=== PATIENT | female | born 1995 | race African-American/Black ===

== ENCOUNTER 2024-11-24 18:25 | Emergency (ER) | payer OTHER, SELFPAY ==
[2024-11-24 18:26] VITALS: BP 116/103; PULSE 68; RESP 15; TEMP 36.2; O2SAT 98; BMI 30.2
[2024-11-24 20:44] LABS: Absolute Lymphocyte Count 2.99 X10^3/uL (0.83-4.51); Absolute Neutrophil Count 3.2 X10^3/uL (2.0-7.7); Basophil# 0.04 X10^3/uL; Basophil% 0.6 % (0-1); Eosinophil# 0.08 X10^3/uL; Eosinophils% 1.2 % (0-5); Hematocrit 34.6 % (37-47); Hemoglobin 11.3 g/dL (12.0-15.0); Lymphocyte # 2.99 X10^3/ul (0.83-4.51); Lymphocyte % 44.3 % (19-41); Mean Corp Hgb Conc 32.7 g/dL (32-36); Mean Corpuscular Hgb 26.2 pg (27.0-32.0); Mean Corpuscular Volume 80.3 fL (81-99); Mean Platelet Vol. 12.1 fl (6.2-12.0); Monocyte# 0.44 X10^3/uL; Monocyte% 6.5 % (0-10); NRBC Flagged by Analyzer 0 % (0-5); Neutrophil # 3.18 X10^3/uL (2.7-7.7); Neutrophil % 47.1 % (47-70); POSITIVE MORPHOLOGY YES; Platelet Count 180 K/mm3 (150-450); RBC Distribution Width CV 15.4 % (11.6-14.6); RBC Distribution Width SD 44.8 fl (35.1-43.9); Red Blood Count 4.31 M/mm3 (4.2-5.4); White Blood Count 6.8 K/mm3 (4.4-11.0)
[2024-11-24 20:53] LABS: Internal QC Validated? YES +Cl - CLEAR BKGD; Pregnancy, Serum, hCG Quali. NEGATIVE Negative; Record Kit Lot#, Serum Preg. 947241
[2024-11-24 21:08] LABS: ALB/GLOB Ratio 1.3 RATIO (0.9-2.4); AST(SGOT) 28 U/L (<=31); Alanine Aminotransfer ALT/SGPT 24 U/L (<=34); Alkaline Phosphatase 93 U/L (35-104); Anion Gap 10 (5-15); BUN 8 mg/dL (4-19); BUN/Creat Ratio 10.7 RATIO (10-20); Carbon Dioxide 21.3 mmol/L (21.0-32.0); Chloride 109 mmol/L (98-108); Creatinine, Serum 0.75 mg/dL (0.70-1.20); EST Glomerular Filtration Rate 108 (>60); Estimated Creatinine Clearance 127.73 ml/min (50-250); Globulin 3.1 g/dL (2.2-4.2); Glucose 103 mg/dL (70-99); Lipase 28 U/L (13-75); Potassium 3.8 mmol/L (3.3-5.1); Protein, Total 7.1 g/dL (5.9-8.4); Sodium Level 140 mmol/L (133-145); Total Bilirubin 0.24 mg/dL (0.00-1.30)
[2024-11-24 21:34] LABS: Differential Indicated SCAN CRITERIA MET
[2024-11-24 21:35] LABS: Differential Comment SCANNED; Platelet Estimate ADEQUATE (ADEQ)
[2024-11-24 22:00] VITALS: BP 118/78; PULSE 67; RESP 18; O2SAT 97
--- NOTE | 2024-11-24 22:28 | CT_ITS ---
PROCEDURE: ABDOMEN/PELVIS W IV CONT ONLY 11/24/2024 REASON FOR EXAM: ABD PAIN TECHNIQUE: ABDOMEN/PELVIS W IV CONT ONLY Coronal and Sagittal reconstruction series were provided. CONTRAST: Isovue 300 VOLUME: 80 non mL One or more dose reduction techniques were used (e.g., Automated exposure control, adjustment of the mA and/or kV according to patient size, use of iterative reconstruction technique. RADIATION DOSE SUMMARY: CTDlvol: 32 mGy DLP: 1108 mGycm COMPARISON: No FINDINGS: Slight basilar atelectasis. Normal heart size. Upper abdominal solid organs show no acute findings. Small splenic hypodensity favoring benign etiology. No hydronephrosis. Normal bladder. Normal uterus and ovaries. No retroperitoneal or pelvic adenopathy. No free air. Nondistended bowel. Normal appendix. No acute large bowel findings. Lumbar spine scoliosis. Small umbilical fat hernia. CT/Abdomen/Pelvis W IV Cont ONLY IMPRESSION: No acute findings Reading Location: [place] [id number]
[2024-11-24] MEDS: 0.9% Normal Saline (1000mL) 1,000 ML 999 ML IV (22:57)
[2024-11-25] VITALS: BP 128/82; O2SAT 96
[2024-11-25 00:28] VITALS: BP 128/82
--- NOTE | 2024-11-25 00:44 | EX.ED.DYSGE1 ---
HPI History of Present Illness Chief Complaint: Abd Pain Informant: patient Narrative Narrative: Patient is a 32-year-old female who states that she has had recurrent abdominal pain as well as bouts of nausea vomiting and diarrhea for approximately 6 months. She states that she is been seen for this and had a stool study performed that reportedly showed no signs of infection. Patient denies any known sick contact. However she states that her symptoms seemed to worsen recently and secondary to this comes to the hospital for evaluation. PFSH PFSH Allergy/AdvReac Type Severity Reaction Status Date / Time No Known Allergies Allergy Verified 11/24/24 22:52 Social History Smoking Status: Never smoker ROS ROS ED Constitutional Constitutional ED: Denies chills or fever(s) ENT ENT ED: Denies sore throat Cardiovascular Cardiovascular: Denies chest pain Respiratory/Chest Respiratory/Chest: Denies cough or dyspnea Gastrointestinal Gastrointestinal: Reports abdominal pain, diarrhea, nausea and vomiting; Denies melena Genitourinary Genitourinary ED: Denies dysuria or hematuria Musculoskeletal Musculoskeletal: Denies back pain or myalgias Integumentary Denies rash Neurologic Neurologic: Denies headache(s) Hematologic/Lymphatic Hematologic/Lymphatic: Denies easy bleeding or easy bruising EXAM Physical Exam Const Vital Signs: 11/24/24 18:26 11/24/24 22:00 11/25/24 00:00 Temperature 97.2 F L Temperature Source Temporal Pulse Rate 68 67 Respiratory Rate 15 18 Blood Pressure 116/103 H 118/78 128/82 H Blood Pressure Mean 107 91 95 Pulse Ox 98 97 96 Oxygen Delivery Method Room Air Room Air 11/25/24 00:28 Temperature Temperature Source Pulse Rate Respiratory Rate Blood Pressure 128/82 H Blood Pressure Mean 97 Pulse Ox Oxygen Delivery Method Positive well nourished and well developed General Appearance ED: well developed; Negative for pallor HEENT Reports moist mucous membranes HEENT Narrative: No tongue or lip swelling no oral lesions no airway edema or compromise Eyes PERRL and EOMs intact bilaterally General Eye ED: Negative for scleral icterus Neck supple Resp normal respiratory effort and clear to auscultation bilaterally Cardio regular rate and regular rhythm Rate: other Other Details: Heart is regular rate and rhythm without murmurs rubs or gallops Radial and carotid pulses are equal and symmetric GI non-distended and no masses GI Narrative: Abdomen is soft and nondistended with normal active bowel sounds. There is mild diffuse pain with palpation without voluntary guarding or rigidity. No pulsatile mass or fluid wave. No peritoneal signs Auscultation: normoactive bowel sounds Palpation: soft Back/Spine no CVA tenderness Extremity normal to inspection Neuro oriented x3, CN's II-XII intact bilaterally and no sensory deficits noted Sensorium / Orientation: alert Motor Exam: strength 5/5 throughout Psych mental status grossly normal Skin no rashes or lesions noted, no wounds and skin turgor normal General Skin Exam: Negative for jaundice or pallor MDM MDM MDM Narrative Medical decision making narrative: Patient arrived to the ER with a soft nonsurgical abdomen. She reported that the symptoms have been recurrent for for multiple months and she is already being worked up for potential infectious process with stool study. However with her reported worsening symptoms patient may have acute colitis or diverticulitis. She also could have potential complication or pancreatitis. She states she has not had any imaging of her abdomen in the past therefore did elect to perform basic labs with a CT scan. I did also order a repeat stool study based on her reported persistent diarrhea. Her labs revealed no clinically significant findings and her CT scan also showed no signs of acute abdominal pathology. The patient did not have any bouts of vomiting or diarrhea while in the ER. Her vital stabilized as well. Therefore at this time with improvement of vitals a negative workup and the fact patient has not had any bouts of vomiting or diarrhea on the ER do not feel there is need for further evaluation and she is otherwise safe for discharge. History & Record Review Discussion w/independent historian: Patient Lab Data Attestation: I reviewed the patient's lab results. Labs: Laboratory Results - last 24 hr 11/24/24 20:32 WBC 6.8 RBC 4.31 Hgb 11.3 L Hct 34.6 L MCV 80.3 L MCH 26.2 L MCHC 32.7 RDW Std Deviation 44.8 H RDW Coeff of Bal 15.4 H Plt Count 180 MPV 12.1 H Immature Gran % (Auto) 0.300 Neut % (Auto) 47.1 Lymph % (Auto) 44.3 H [place] % (Auto) 6.5 Eos % (Auto) 1.2 Baso % (Auto) 0.6 Absolute Neuts (auto) 3.2 Absolute Lymphs (auto) 2.99 Nucleated RBC % 0 Differential Comment SCANNED Platelet Estimate ADEQUATE Sodium 140 Potassium 3.8 Chloride 109 H Carbon Dioxide 21.3 Anion Gap 10 BUN 8 Creatinine 0.75 Estim Creat Clear Calc 127.73 Est GFR (MDRD) Non-Af 108 BUN/Creatinine Ratio 10.7 Glucose 103 H Calcium 9.0 Total Bilirubin 0.24 AST 28 ALT 24 Alkaline Phosphatase 93 Total Protein 7.1 Albumin 4.0 Globulin 3.1 Albumin/Globulin Ratio 1.3 Lipase 28 Serum , Qual NEGATIVE Radiography Diagnostic Testing: Clinical Impression(s) from Imaging Studies Abdomen/Pelvis CT 11/24/24 22:28 IMPRESSION: No acute findings Reading Location: [place] [address] Discharge Plan Triage Chief Complaint: Abd Pain ED Provider: Harshal Healy Dx/Rx/DC Orders Clinical Impression: Nonspecific abdominal pain, Nausea vomiting and diarrhea Instructions: Abdominal Pain, ED Diet Vomiting Diarrhea Primary Care Provider: Care Physician,No Primary Referrals: García Ribeiro DO [Med Staff - Active Staff] - Care Physician,No Primary [Primary Care Provider] - Activity Restrictions/Additional Instructions: Your CT scan shows no sign of intestinal abnormality and your labs revealed no clinically significant findings. With your negative workup today but prolonged symptoms you need to follow-up with gastroenterology/Dr. Ribeiro as you may need an EGD and colonoscopy to further assess the cause of your recurrent symptoms Print Language: [place] Creole Disposition Disposition: Home, Self Care Discharge Date/Time: 11/25/24 00:57
[2024-11-25 00:51] VITALS: BP 111/73; PULSE 65; RESP 18; TEMP 37.1; O2SAT 98
== END 2024-11-25 00:57 | disposition home or self-care (01) ==
PROVIDERS: Emergency Provider Emergency Medicine; Visit Provider Emergency Medicine
DX: R10.9 Unspecified abdominal pain (principal); R11.2 Nausea with vomiting, unspecified; R19.7 Diarrhea, unspecified
CPT/HCPCS: 74177; 80053; 83690; 84703; 85025; 96360; 96361; 99283; Q9967; A4216

== ENCOUNTER 2025-02-06 14:36 | Emergency (ER) | payer SELFPAY ==
[2025-02-06 14:57] VITALS: BP 122/91; PULSE 63; RESP 20; TEMP 36.7; O2SAT 96; BMI 28.5
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
--- OUTSIDE RECORDS SUMMARY | 2025-02-06 15:06 | XMS RPT_ITS | CCD ---
Author Organization [facility] Care Team Providers Care Wire Annealer Name Role Phone Unavailable Primary Care Provider RENO Moser Attending Unavailable PROVIDER, UNKNOWN Primary Care Unavailable No Family, Physician Primary Care Unavailable ALEX PEARL Attending Unavailab le No Family, Physician Primary Care Unavailable LYUDMILA JIN Attending UnavailHO Paul Consulting Unavailable RENO GUILLEN Consulting Unavailable LYUDMILA JIN Referring Unavailabl e No Family, Physician Primary Care Unavailable PHYSICIAN, NONE Primary Care Unavailable NICOLE SAMANIEGO DO Attending Unavailable Care Physician, No Primary Primary Care Provider Unavailable Dr. Harshal Healy DO Emergency Provider Harshal Healy Attending Unavailable Care Physician, No Primary Primary Care Unava ilable Medications Current Medications Medication Drug Class(es) Dates Sig (Normalized) Sig (Original) acetaminophen 325 mg / HYDROcodone bitartrate 5 mg oral tablet (1 source) Opioid Agonist Start: 09-22-2023 End: 09-27-2023 HYDROcodone-acetam inophen (NORCO) 5-325 MG per tablet Indications: Anal pain , Rectal pain Take 1 tablet by mouth every 4 hours as needed for Pain for up to 5 days. Intended supply: 3 days. Take lowest dose possible to manage pain Max Daily Amount: 6 tablets 25 tablet 0 09/22/2023 09/27/2023 Active amoxicillin 875 mg / clavulanate 125 mg oral tablet (1 source) Penicillin-class Antibacterial Start: 09-22-2023 End: 09-29-2023 take 1 tablet by mouth twice daily amoxicillin-clavul anate (AUGMENTIN) 875-125 MG per tablet Take 1 tablet by mouth 2 times daily for 7 days 14 tablet 0 09/22/2023 09/29/2023 Active docusate sodium 100 mg oral capsule (1 source) Start: 09-22-2023 take 1 capsule by mouth once daily as needed for constipation docusate sodium (COLACE) 100 MG capsule Take 1 capsule by mouth daily as needed for Constipation 30 capsule 0 09/22/2023 Active 2 ml droperidol 2.5 mg/ml injection (1 source) Dopamine-2 Receptor Antagonist Start: 09-22-2023 End: 2023 droPERidol (INAPSINE) injection 0.625 mg 2 ml fentaNYL 0.05 mg/ml injection (2 sources) Opioid Agonist Start: 09-22-2023 End: 09-22-2023 fentaNYL (SUBLIMAZE) injection 50 mcg 1 ml HYDROmorphone hydrochloride 1 mg/ml cartridge (1 source) Opioid Agonist Start: 09-22-2023 HYDROmorphone (DILAUDID) injection 0.25 mg ibuprofen 800 mg oral tablet (1 source) Nonsteroidal Anti-inflammatory Drug Start: 08-16-2021 take 1 tablet by mouth every eight hours ibuprofen (ADVIL;MOTRIN) 800 MG tablet Take 1 tablet by mouth every 8 hours 120 tablet 3 08/16/2021 Active labetalol (NORMODYNE;TRANDATE ) injection 10 mg (1 source) Start: 09-22-2023 labetalol (NORMODYNE;TRANDAT E) injection 10 mg lidocaine hydrochloride 0.02 mg/mg topical gel (1 source) Antiarrhythmic, Amide Local Anesthetic Start: 09-22-2023 lidocaine (XYLOCAINE) 2 % jelly Apply topically as needed. 1 each 0 09/22/2023 Active magnesium hydroxide 80 mg/ml oral suspension (1 source) Start: 09-22-2023 take 30 mL by mouth once daily as needed for constipation magnesium hydroxide (MILK OF MAGNESIA) 400 MG/5ML suspension Take 30 mLs by mouth daily as needed for Constipation 1 each 1 09/22/2023 Active 1 ml meperidine hydrochloride 25 mg/ml cartridge (1 source) Opioid Agonist Start: 09-22-2023 meperidine (DEMEROL) injection 12.5 mg Misc. Devices (SITZ BATH) MISC (1 source) Start: 09-22-2023 End: 10-06-2023 Misc. Devices (SITZ BATH) MISC 1 each by Does not apply route in the morning and at bedtime for 14 days Sitz bath BID and after every bowel movement. 1 each 1 09/22/2023 10/06/2023 Active naloxone 0.4 mg in 10 mL sodium chloride syringe (1 source) Start: 09-22-2023 naloxone 0.4 mg in 10 mL sodium chloride syringe 2 ml ondansetron 2 mg/ml injection (1 source) Serotonin-3 Receptor Antagonist Start: 09-22-2023 End: 2023 ondansetron (ZOFRAN) injection 4 mg oxyCODONE hydrochloride 5 mg oral tablet (1 source) Opioid Agonist Start: 09-22-2023 End: 2023 oxyCODONE (ROXICODONE) immediate release tablet 5 mg 5 ml sodium chloride 9 mg/ml injection (4 sources) Start: 09-22-2023 sodium chloride flush 0.9 % injection 5-40 mL Start: 09-22-2023 sodium chlorid e flush 0.9 % injection 5-40 mL Start: 09-22-2023 End: 09-22-2023 0.9 % sodium chloride infusi on Completed/Discontinued Medications Medication Drug Class(es) Dates Sig (Normalized) Sig (Original) 1 ml ketorolac tromethamine 15 mg/ml cartridge (1 source) Nonsteroidal Anti-inflammatory Drug, Cyclooxygenase Inhibitor Start: 09-22-2023 End: 09-22-2023 ketorolac (TORADOL) injection 15 mg Problems Active Problems Problem Classification Problem Date Documented Da te Episodic/Chronic Abdominal pain (2 sources) Nonspecific abdominal pain; Translations: [Unspecified abdominal pain] Onset: 01-19-2025 11-25-2024 Episodic Anal and rectal conditions (6 sources) Anal pain; Translations: [Other specified diseases of anus and rectum] Onset: 09-22-2023 09-22-2023 Episodic Hemorrhoids (5 sources) Thrombosed external hemorrhoids; Translations: [Perianal venous thrombosis] Onset: 09-22-2023 09-22-2023 Episodic Other female genital disorders (2 sources) Abnormal uterine and vaginal bleeding, unspecified; Translations: [Abnormal uterine and vaginal bleeding, unspecified] Onset: 09-22-2023 Chronic Syncope (4 sources) Syncope and collapse; Translations: [Syncope and collapse] Onset: 09-22-2023 09-22-2023 Episodic Past or Other Problems Problem Classification Problem Date Documented Da te Episodic/Chronic Other complications of ; puerperium affecting management of mother (1 source) Delivery finding; Translations: [Complication of labor and delivery, unspecified] Onset: 08-13-2021 08-13-2021 Episodic Results Test Name Value Interpretation Reference Range Facility Emergency Department Summary on 11-25-2024 Emergency Department Summary [facility] Medical Records Department [address] [place] [address] Emergency Department Summary 11/25/24 MR#: [id number] Acct: [id number] Name: BLAINE RUIZ Rep #: [id number] : 1995 29 From: Harshal Healy DO PCP: Care Physician,No Primary Status:DEP ER Location: ED HPI History of Present Illness Chief Complaint: Abd Pain Informant: patient Narrative Narrative: Patient is a 32-year-old female who states that she has had recurrent abdominal pain as well as bouts of nausea vomiting and diarrhea for approximately 6 months. She states that she is been seen for this and had a stool study performed that reportedly showed no signs of infection. Patient denies any known sick contact. However she states that her symptoms seemed to worsen recently and secondary to this comes to the hospital for evaluation. PFSH PFSH Allergy/AdvReac Type Severity Reaction Status Date / Time No Known Allergies Allergy Verified 11/24/24 22:52 Social History Smoking Status: Never smoker [facility] ED Constitutional Constitutional ED: Denies chills or fever(s) ENT ENT ED: Denies sore throat Cardiovascular Cardiovascular: Denies chest pain Respiratory/Chest Respiratory/Chest: Denies cough or dyspnea Gastrointestinal Gastrointestinal: Reports abdominal pain, diarrhea, nausea and vomiting; Denies melena Genitourinary Genitourinary ED: Denies dysuria or hematuria Musculoskeletal Musculoskeletal: Denies back pain or myalgias Integumentary Denies rash Neurologic Neurologic: Denies headache(s) Hematologic/Lymphati c Hematologic/Lymphati c: Denies easy bleeding or easy bruising EXAM Physical Exam Const Vital Signs: 11/24/24 18:26 11/24/24 22:00 11/25/24 00:00 Temperature 97.2 F L Temperature Source Temporal Pulse Rate 68 67 Respiratory Rate 15 18 Blood Pressure 116/103 H 118/78 128/82 H Blood Pressure Mean 107 91 95 Pulse Ox 98 97 96 Oxygen Delivery Method Room Air Room Air 11/25/24 00:28 Temperature Temperature Source Pulse Rate Respiratory Rate Blood Pressure 128/82 H Blood Pressure Mean 97 Pulse Ox Oxygen Delivery Method Positive well nourished and well developed General Appearance ED: well developed; Negative for pallor HEENT Reports moist mucous membranes HEENT Narrative: No tongue or lip swelling no oral lesions no airway edema or compromise Eyes PERRL and EOMs intact bilaterally General Eye ED: Negative for scleral icterus Neck supple Resp normal respiratory effort and clear to auscultation bilaterally Cardio regular rate and regular rhythm Rate: other Other Details: Heart is regular rate and rhythm without murmurs rubs or gallops Radial and carotid pulses are equal and symmetric GI non-distended and no masses GI Narrative: Abdomen is soft and nondistended with normal active bowel sounds. There is mild diffuse pain with palpation without voluntary guarding or rigidity. No pulsatile mass or fluid wave. No peritoneal signs Auscultation: normoactive bowel sounds Palpation: soft Back/Spine no CVA tenderness Extremity normal to inspection Neuro oriented x3, CN's II-XII intact bilaterally and no sensory deficits noted Sensorium / Orientation: alert Motor Exam: strength 5/5 throughout Psych mental status grossly normal Skin no rashes or lesions noted, no wounds and skin turgor normal General Skin Exam: Negative for jaundice or pallor MDM MDM MDM Narrative Medical decision making narrative: Patient arrived to the ER with a soft nonsurgical abdomen. She reported that the symptoms have been recurrent for for multiple months and she is already being worked up for potential infectious process with stool study. However with her reported worsening symptoms patient may have acute colitis or diverticulitis. She also could have potential complication or pancreatitis. She states she has not had any imaging of her abdomen in the past therefore did elect to perform basic labs with a CT scan. I did also order a repeat stool study based on her reported persistent diarrhea. Her labs revealed no clinically significant findings and her CT scan also showed no signs of acute abdominal pathology. The patient did not have any bouts of vomiting or diarrhea while in the ER. Her vital stabilized as well. Therefore at this time with improvement of vitals a negative workup and the fact patient has not had any bouts of vomiting or diarrhea on the ER do not feel there is need for further evaluation and she is otherwise safe for discharge. History Record Review Discussion w/independent historian: Patient Lab Data Attestation: I reviewed the patient's lab results. Labs: Laboratory Results - last 24 hr 11/24/24 20:32 WBC 6.8 RBC 4.31 Hgb 11. (more content not included)... Normal [facility] Abdomen/Pelvis W IV Cont ONL Yon 11-24-2024 Abdomen/Pelvis W IV Cont ONLY [facility] Imaging Services [address] [place], [place] [address] Abdomen/Pelvis W IV Cont ONLY MR#: [id number] Acct: [id number] Name: BLAINE RUIZ Rep #: [id number] : 1995 F 29 From: Ravi Mckay MD PCP: Care Physician,No Primary Status: DEP ER Study: Abdomen/Pelvis W IV Cont ONLY Date of Exam: Exam# [id number] Ordering Dr: Harshal Healy DO PROCEDURE: ABDOMEN/PELVIS W IV CONT ONLY 11/24/2024 REASON FOR EXAM: ABD PAIN TECHNIQUE: ABDOMEN/PELVIS W IV CONT ONLY Coronal and Sagittal reconstruction series were provided. CONTRAST: Isovue 300 VOLUME: 80 non mL One or more dose reduction techniques were used (e.g., Automated exposure control, adjustment of the mA and/or kV according to patient size, use of iterative reconstruction technique. RADIATION DOSE SUMMARY: CTDlvol: 32 mGy DLP: 1108 mGycm COMPARISON: No FINDINGS: Slight basilar atelectasis. Normal heart size. Upper abdominal solid organs show no acute findings. Small splenic hypodensity favoring benign etiology. No hydronephrosis. Normal bladder. Normal uterus and ovaries. No retroperitoneal or pelvic adenopathy. No free air. Nondistended bowel. Normal appendix. No acute large bowel findings. Lumbar spine scoliosis. Small umbilical fat hernia. CT/Abdomen/Pelvis W IV Cont ONLY IMPRESSION: No acute findings Reading Location: [place] [address] CC: Harshal Healy DO; No Primary Care Physician Embedded Firmware Engineer: Signed Normal [facility] Absolute lymphocyte countOrd ered By: ED PROVIDER on 11-24-2024 Lymphocytes Auto (Unsp spec) [#/Vol] 2.99 10*3/uL 0.83-4.51 [facility] Absolute neutrophil countOrd ered By: ED PROVIDER on 11-24-2024 Neutrophils (Bld) [#/Vol] 3.2 10*3/uL 2.0-7.7 [facility] Anion gap in Serum or Plasma Ordered By: ED PROVIDER on 11-24-2024 Anion gap [Moles/Vol] 10 mmol/L 5- [facility] Automated lymphocyte count a s percentage of total leukocytesOrdered By: ED PROVIDER on 11-24-2024 Lymphocytes/100 WBC Auto (Unsp spec) 44.3 % High 19-41 [facility] BUN/creatinine ratioOrdered By: ED PROVIDER on 11-24-2024 Urea nitrogen/Creatinine [Mass ratio] 10.7 mg/mg 10-20 [facility] Basophil percentageOrdered B y: ED PROVIDER on 11-24-2024 Basophils/100 WBC (Bld) 0.6 % 0-1 [facility] Bilirubin, totalOrdered By: ED PROVIDER on 11-24-2024 Bilirubin [Mass/Vol] 0.24 mg/dL 0.00-1.30 [facility] Blood manual differential co mment interpretation (narrative result)Ordered By: ED PROVIDER on 11-24-2024 Manual differential comment Logan (Bld) [Interp] SCANNED [facility] CBC W/Diff, Automatedon 11-01 PLT EST ADEQUATE Normal ADEQ [facility] Comment on above: Performed By: #### L 500.4050, L100.0100, L501.2450, L700.6800 #### [facility] [address] [place], [address] SMEAR COMMENT SCANNED Normal [facility] Comment on above: Performed By: #### L 500.4050, L100.0100, L501.2450, L700.6800 #### [facility] [address] [place], [address] Carbon dioxide, total [Moles /volume] in Central venous bloodOrdered By: ED PROVIDER on 11-24-2024 CO2 [Moles/Vol] 21.3 mmol/L 21.0-32.0 [facility] Chloride assayOrdered By: ED PROVIDER on 11-24-2024 Chloride [Moles/Vol] 109 mmol/L High 98-108 [facility] Comprehensive Metabolic Prof ilon 11-24-2024 Albumin [Mass/Vol] 4.0 g/dL Normal 3.5-5.0 [facility] Comment on above: Performed By: #### L 500.4050, L100.0100, L501.2450, L700.6800 #### [facility] [address] [place], [address] Albumin/Globulin [Mass ratio] 1.3 {ratio} Normal 0.9-2.4 [facility] Comment on above: Performed By: #### L 500.4050, L100.0100, L501.2450, L700.6800 #### [facility] [address] [place], [address] ALK PHOS 93 U/L Normal 35-104 [facility] Comment on above: Performed By: #### L 500.4050, L100.0100, L501.2450, L700.6800 #### [facility] [address] [place], [address] ALT [Catalytic activity/Vol] 24 U/L Normal <=34 [facility] Comment on above: Performed By: #### L 500.4050, L100.0100, L501.2450, L700.6800 #### [facility] [address] [place], [address] AST [Catalytic activity/Vol] 28 U/L Normal <=31 [facility] Comment on above: Performed By: #### L 500.4050, L100.0100, L501.2450, L700.6800 #### [facility] [address] [place], [address] Bilirubin [Mass/Vol] 0.24 mg/dL Normal 0.00-1.30 [facility] Comment on above: Performed By: #### L 500.4050, L100.0100, L501.2450, L700.6800 #### [facility] [address] [place], [address] BUN/CRE 10.7 RATIO Normal 10-20 [facility] Comment on above: Performed By: #### L 500.4050, L100.0100, L501.2450, L700.6800 #### [facility] [address] [place], [address] Calcium [Mass/Vol] 9.0 mg/dL Normal 7.6-11.0 [facility] Comment on above: Performed By: #### L 500.4050, L100.0100, L501.2450, L700.6800 #### [facility] [address] [place], [address] Chloride [Moles/Vol] 109 mmol/L High 98-108 [facility] Comment on above: Performed By: #### L 500.4050, L100.0100, L501.2450, L700.6800 #### [facility] [address] [place], [address] CO2 [Moles/Vol] 21.3 mmol/L Normal 21.0-32.0 [facility] Comment on above: Performed By: #### L 500.4050, L100.0100, L501.2450, L700.6800 #### [facility] [address] [place], [address] Creatinine [Mass/Vol] 0.75 mg/dL Normal 0.70-1.20 [facility] Comment on above: Performed By: #### L 500.4050, L100.0100, L501.2450, L700.6800 #### [facility] [address] [place], [address] ECRCL 127.73 ml/min Normal 50-250 [facility] Comment on above: Performed By: #### L 500.4050, L100.0100, L501.2450, L700.6800 #### [facility] [address] [place], [address] GAP 10 Normal 5-15 [facility] Comment on above: Performed By: #### L 500.4050, L100.0100, L501.2450, L700.6800 #### [facility] [address] [place], [address] GFR/1.73 sq M.predicted among non-blacks MDRD (S/P/Bld) [Vol rate/Area] 108 mL/min/{1.73_m2} Normal >60 [facility] Comment on above: Result Comment: mL/m in/1.73m2 CKD-EPI Creatinine Equation (2020) Performed By: #### L 500.4050, L100.0100, L501.2450, L700.6800 #### [facility] [address] [place], [address] Globulin (S) [Mass/Vol] 3.1 g/dL Normal 2.2-4.2 [facility] Comment on above: Performed By: #### L 500.4050, L100.0100, L501.2450, L700.6800 #### [facility] [address] [place], [address] Glucose [Mass/Vol] 103 mg/dL High 70-99 [facility] Comment on above: Performed By: #### L 500.4050, L100.0100, L501.2450, L700.6800 #### [facility] [address] [place], [address] Potassium [Moles/Vol] 3.8 mmol/L Normal 3.3-5.1 [facility] Comment on above: Performed By: #### L 500.4050, L100.0100, L501.2450, L700.6800 #### [facility] [address] [place], [address] Sodium [Moles/Vol] 140 mmol/L Normal 133-145 [facility] Comment on above: Performed By: #### L 500.4050, L100.0100, L501.2450, L700.6800 #### [facility] [address] [place], [address] T PROT 7.1 g/dL Normal 5.9-8.4 [facility] Comment on above: Performed By: #### L 500.4050, L100.0100, L501.2450, L700.6800 #### [facility] [address] [place], [address] Urea nitrogen [Mass/Vol] 8 mg/dL Normal 4-19 [facility] Comment on above: Performed By: #### L 500.4050, L100.0100, L501.2450, L700.6800 #### [facility] [address] [place], [address] Eosinophil percentageOrdered By: ED PROVIDER on 11-24-2024 Eosinophils/100 WBC (Bld) 1.2 % 0-5 [facility] Erythrocyte distribution wid th ratioOrdered By: ED PROVIDER on 11-24-2024 Erythrocyte distribution width (RBC) [Ratio] 15.4 % High 11.6-14.6 [facility] Erythrocyte distribution wid th standard deviationOrdered By: ED PROVIDER on 11-24-2024 Erythrocyte distribution width (RBC) [Ratio] 44.8 fl High 35.1-43.9 [facility] Glomerular filtration rate ( GFR) estimation/1.73 sq m using serum, plasma, or whole bOrdered By: ED PROVIDER on 11-24-2024 GFR/1.73 sq M.predicted among non-blacks MDRD (S/P/Bld) [Vol rate/Area] 108 mL/min/{1.73_m2} >60 [facility] Comment on above: mL/min/1.73m2 CKD-EP I Creatinine Equation (2020) Hematocrit Auto (Bld) [Volum e fraction]Ordered By: ED PROVIDER on 11-24-2024 Hematocrit (Bld) [Volume fraction] 34.6 % Low 37-47 [facility] Hemoglobin measurementOrdere d By: ED PROVIDER on 11-24-2024 Hemoglobin (Bld) [Mass/Vol] 11.3 g/dL Low 12.0-15.0 [facility] Immature granulocytes/100 WB C Auto (Bld)Ordered By: ED PROVIDER on 11-24-2024 Immature granulocytes/100 WBC (Bld) 0.300 % 0.0-0.9 [facility] Comment on above: IG% - Immature Granu locytes (promyelocytes, myelocytes and metamyelocytes) > 1% indicates that a LEFT SHIFT is Present. Laboratory - Chemistry and C hemistry - challengeOrdered By: ED PROVIDER on 11-24-2024 AST [Catalytic activity/Vol] 28 U/L <32 [facility] Lipaseon 11-24-2024 Lipase [Catalytic activity/Vol] 28 U/L Normal 13-75 [facility] Comment on above: Result Comment: Jayro win note: LIPASE revised reference range effective 22. New Lipase methodology. Expected to produce lower values than the previous assay method. NEW Reference Range: 13 - 75 U/L Performed By: #### L 500.4050, L100.0100, L501.2450, L700.6800 #### [facility] [address] [place], [address] Lipase measurementOrdered By : ED PROVIDER on 11-24-2024 Lipase [Catalytic activity/Vol] 28 U/L 13-75 [facility] Comment on above: Please note:LIPASE r evised reference range effective 22. New Lipase methodology. Expected to produce lower values than the previous assay method. NEW Reference Range: 13 - 75 U/L MCV (mean corpuscular volume ) determinationOrdered By: ED PROVIDER on 11-24-2024 MCV (RBC) [Entitic vol] 80.3 fL Low 81-99 [facility] Mean corpuscular hemoglobin (MCH) determinationOrdered By: ED PROVIDER on 11-24-2024 MCH (RBC) [Entitic mass] 26.2 pg Low 27.0-32.0 [facility] Mean corpuscular hemoglobin concentration (MCHC) determinationOrdered By: ED PROVIDER on 11-24-2024 MCHC (RBC) [Mass/Vol] 32.7 g/dL 32-36 [facility] Mean platelet volume determi nationOrdered By: ED PROVIDER on 11-24-2024 Platelet mean volume (Bld) [Entitic vol] 12.1 fL High 6.2-12.0 [facility] Monocyte percentageOrdered B y: ED PROVIDER on 11-24-2024 Monocytes/100 WBC (Bld) 6.5 % 0-10 [facility] Neutrophil percentageOrdered By: ED PROVIDER on 11-24-2024 Neutrophils/100 WBC (Bld) 47.1 % 47-70 [facility] Nucleated red blood cell per centageOrdered By: ED PROVIDER on 11-24-2024 Nucleated RBC/100 WBC (Bld) [Ratio] 0 % 0-5 [facility] Platelet countOrdered By: ED PROVIDER on 11-24-2024 Platelets (Bld) [#/Vol] 180 10*3/uL 150-450 [facility] Platelet estimateOrdered By: ED PROVIDER on 11-24-2024 Platelets LM Ql (Bld) ADEQUATE ADEQ [facility] Potassium measurement (mass/ volume)Ordered By: ED PROVIDER on 11-24-2024 Potassium (Unsp spec) [Mass/Vol] 3.8 mmol/L 3.3-5.1 [facility] ,Serum,hCG Quali.on 11-24-2024 HCG, SERUM QUAL Negative Normal [facility] Comment on above: Performed By: #### L 500.4050, L100.0100, L501.2450, L700.6800 #### [facility] [address] [place], [address] RBC Auto (Bld) [#/Vol]Ordere d By: ED PROVIDER on 11-24-2024 RBC (Bld) [#/Vol] 4.31 10*6/uL 4.2-5.4 [facility] Serum beta-hCG test, qualita tiveOrdered By: ED PROVIDER on 11-24-2024 Beta HCG ( test) Ql Negative [facility] Serum creatinine measurement (mass/volume)Ordered By: ED PROVIDER on 11-24-2024 Creatinine [Mass/Vol] 0.75 mg/dL 0.70-1.20 [facility] Serum globulin measurementOr dered By: ED PROVIDER on 11-24-2024 Globulin (S) [Mass/Vol] 3.1 g/dL 2.2-4.2 [facility] Serum glucose measurement (m ass/volume)Ordered By: ED PROVIDER on 11-24-2024 Glucose [Mass/Vol] 103 mg/dL High 70-99 [facility] Serum or plasma alanine ocampo otransferase (ALT) measurementOrdered By: ED PROVIDER on 11-24-2024 ALT [Catalytic activity/Vol] 24 U/L <35 [facility] Serum or plasma albumin atul urement (mass/volume)Ordered By: ED PROVIDER on 11-24-2024 Albumin [Mass/Vol] 4.0 g/dL 3.5-5.0 [facility] Serum or plasma albumin/glob ulin mass ratioOrdered By: ED PROVIDER on 11-24-2024 Albumin/Globulin [Mass ratio] 1.3 {ratio} 0.9-2.4 [facility] Serum or plasma alkaline shira sphatase measurementOrdered By: ED PROVIDER on 11-24-2024 ALP [Catalytic activity/Vol] 93 U/L 35-104 [facility] Serum or plasma calcium atul urement (mass/volume)Ordered By: ED PROVIDER on 11-24-2024 Calcium [Mass/Vol] 9.0 mg/dL 7.6-11.0 [facility] Serum or plasma urea nitroge n measurement (mass/volume)Ordered By: ED PROVIDER on 11-24-2024 Urea nitrogen [Mass/Vol] 8 mg/dL 4-19 [facility] Sodium levelOrdered By: ED P ROVIDER on 11-24-2024 Sodium [Moles/Vol] 140 mmol/L 133-145 [facility] Total proteinOrdered By: ED PROVIDER on 11-24-2024 Protein [Mass/Vol] 7.1 g/dL 5.9-8.4 [facility] White blood cell (WBC) count Ordered By: ED PROVIDER on 11-24-2024 WBC (Bld) [#/Vol] 6.8 10*3/uL 4.4-11.0 [facility] BVPCRon 08-11-2024 Bacterial Vaginosis Positive Abnormal Negative [facility] Comment on above: Result Comment: Mole luis enriquear methodology performed on the ReviewPro System. Performed By: #### B VPCR, NGPCR1, CVTV, CTPCR #### [place] [address] CTPCRon 08-11-2024 C. trachomatis Interp Normal See CT Interp N [facility] Comment on above: Result Comment: C. t rachomatis DNA not detected. Specimen is presumptive negative for C. trachomatis. A negative result does not preclude C. trachomatis infection because results depend on adequate specimen collection, absence of inhibitors, and sufficient DNA to be detected. See CT Interp N Performed By: #### B VPCR, NGPCR1, CVTV, CTPCR #### [place] [address] C.trachomatis PCR Negative Normal Negative [facility] Comment on above: Result Comment: Arias zhou (PCR) assay performed on the appssavvyas 4800 system. Performed By: #### B VPCR, NGPCR1, CVTV, CTPCR #### [place] [id number] Chlam Source Cervix Normal [facility] Comment on above: Result Comment: Garg sport tube received with two swabs. Review collection procedure. Inappropriate collection may cause aberrant results. Performed By: #### B VPCR, NGPCR1, CVTV, CTPCR #### [place] [address] CVTVon 08-11-2024 Valerie glabrata Negative Normal Negative [facility] Comment on above: Performed By: #### B VPCR, NGPCR1, CVTV, CTPCR #### [place] [address] Valerie Species Positive Abnormal Negative [facility] Comment on above: Result Comment: Arias zhou methodology performed on the ReviewPro System. Performed By: #### B VPCR, NGPCR1, CVTV, CTPCR #### [place] [address] Trichomonas vaginalis Negative Normal Negative [facility] Comment on above: Performed By: #### B VPCR, NGPCR1, CVTV, CTPCR #### [place] [address] [id number] 08-11-2024 GC PCR Source Cervix Normal [facility] Comment on above: Result Comment: Garg sport tube received with two swabs. Review collection procedure. Inappropriate collection may cause aberrant results. Performed By: #### B VPCR, NGPCR1, CVTV, CTPCR #### [place] [address] N. gonorrhoeae (PCR) Negative Normal Negative [facility] Comment on above: Result Comment: Arias zhou (PCR) assay performed on the Gio Jmaes 4800 System. Performed By: #### B VPCR, NGPCR1, CVTV, CTPCR #### [place] [address] N. gonorrhoeae Interp Normal See NG Interp N [facility] Comment on above: Result Comment: N. g onorrhoeae DNA not detected. Specimen is presumptive negative for N. gonorrhoeae. A negative result does not preclude Neisseria gonorrhoeae infection because results depend on adequate specimen collection, absence of inhibitors, and sufficient DNA to be detected. See NG Interp N Performed By: #### B VPCR, NGPCR1, CVTV, CTPCR #### [place] [address] .Urinalysis Microscopic (AO) on 08-09-2024 UA RBC 0-5 Abnormal None Seen [facility] Comment on above: Performed By: #### U AMICAO, UA, PREGU #### [address] [address] UA Squam Epithelial 15-25 Abnormal None Seen [facility] Comment on above: Performed By: #### U AMICAO, UA, PREGU #### [address] [address] UA WBC 0-5 Abnormal None Seen [facility] Comment on above: Performed By: #### U AMICAO, UA, PREGU #### [address] [address] PREGUon 08-09-2024 HCG ( test) Ql (U) Negative Normal [facility] Comment on above: Performed By: #### U AMICAO, UA, PREGU #### [address] [address] test (u) int Not detected Invalid Interpretation Code [facility] Comment on above: Performed By: #### U AMICAO, UA, PREGU #### [address] [address] UAon 08-09-2024 Color (U) Yellow Normal [facility] Comment on above: Performed By: #### U AMICAO, UA, PREGU #### [address] [address] Glucose (U) [Mass/Vol] Negative Normal Negative [facility] Comment on above: Performed By: #### U AMICAO, UA, PREGU #### [address] [address] Ketones Ql (U) Negative Normal Negative [facility] Comment on above: Performed By: #### U AMICAO, UA, PREGU #### [address] [address] UA Appear Slightly Cloudy Abnormal Clear [facility] Comment on above: Performed By: #### U AMICAO, UA, PREGU #### [address] [address] UA Blood Negative Normal Negative [facility] Comment on above: Performed By: #### U AMICAO, UA, PREGU #### [place] [address] UA Leuk Est Negative Normal Negative [facility] Comment on above: Performed By: #### U AMICAO, UA, PREGU #### [place] [address] UA Nitrite Negative Normal Negative [facility] Comment on above: Performed By: #### U AMICAO, UA, PREGU #### [place] [address] UA pH 5.5 Normal 5.0 - 8.[address] [facility] Comment on above: Performed By: #### U AMICAO, UA, PREGU #### [place] [address] UA Protein Negative Normal Negative [facility] Comment on above: Performed By: #### U AMICAO, UA, PREGU #### [place] [address] UA Spec Grav >=1.030 Abnormal 1.015-1.[address] [facility] Comment on above: Performed By: #### U AMICAO, UA, PREGU #### [place] [address] UA Specimen Type Clean Catch Normal [facility] Comment on above: Performed By: #### U AMICAO, UA, PREGU #### [place] [address] UA Urobilinogen 0.2 E.U./dL Normal 0.2-1.[address] [facility] Comment on above: Performed By: #### U AMICAO, UA, PREGU #### [place] [address] Urobilinogen (U) [Mass/Vol] Negative Normal Negative [facility] Comment on above: Performed By: #### U AMICAO, UA, PREGU #### [facility] [place] [address], [place] [address] BASIC METABOL PANELon 2023 Anion gap [Moles/Vol] 11 mmol/L Normal 7-16 [facility] Comment on above: Performed By: #### C D, EBCG, HCGQL, TROTHS, PBNP #### ([place]) [facility] ([id number]) [address] [place] [address] DR RODGERS, Calcium [Mass/Vol] 8.7 mg/dL Normal 8.3-10.6 [facility] Comment on above: Performed By: #### C D, EBCG, HCGQL, TROTHS, PBNP #### ([place]) [facility] ([id number] [place] [address] DR RODGERS, Chloride [Moles/Vol] 109 mmol/L Normal 99-110 [facility] Comment on above: Performed By: #### C D, EBCG, HCGQL, TROTHS, PBNP #### ([place]) [facility] ([id number]) [address] [place] [address] DR RODGERS, CO2 [Moles/Vol] 21 mmol/L Normal 21-32 [facility] Comment on above: Performed By: #### C D, EBCG, HCGQL, TROTHS, PBNP #### ([place]) [facility] ([id number]) [address] [place] [address] DR RODGERS, Creatinine [Mass/Vol] 0.7 mg/dL Normal 0.6-1.1 [facility] Comment on above: Performed By: #### C D, EBCG, HCGQL, TROTHS, PBNP #### ([place]) [facility] ([id number] [address] DR RODGERS, GFR/1.73 sq M.predicted among non-blacks MDRD (S/P/Bld) [Vol rate/Area] mL/min/{1.73_m2} Normal >60 [facility] Comment on above: Result Comment: These results are not intended for use in patients <18 years of age. eGFR results are calculated without a race factor using the 2020 CKD-EPI equation. Careful clinical correlation is recommended, particularly when comparing to results calculated using previous equations. The CKD-EPI equation is less accurate in patients with extremes of muscle mass, extra-renal metabolism of creatine, excessive creatine ingestion, or following therapy that affects renal tubular secretion. Performed By: #### C D, EBCG, HCGQL, TROTHS, PBNP #### ([place]) [facility] ([id number]) [address] [place] [address] DR RODGERS, Glucose [Mass/Vol] 110 mg/dL High 70-99 [facility] Comment on above: Performed By: #### C William, EBCG, HCGQL, TROTHS, PBNP #### ([place]) [facility] ([id number]) [address] [place] [address] DR RODGERS, Potassium [Moles/Vol] 3.4 mmol/L Low 3.5-5.1 [facility] Comment on above: Performed By: #### C William, EBCG, HCGQL, TROTHS, PBNP #### ([place]) [facility] ([id number]) [address] [place] [address] DR RODGERS, Sodium [Moles/Vol] 141 mmol/L Normal 135-145 [facility] Comment on above: Performed By: #### C D, EBCG, HCGQL, TROTHS, PBNP #### ([place]) [facility] ([id number]) [address] [place] [address] DR RODGERS, Urea nitrogen [Mass/Vol] 8 mg/dL Normal 6-23 [facility] Comment on above: Performed By: #### C D, EBCG, HCGQL, TROTHS, PBNP #### ([place]) [facility] ([id number]) [address] [place] [address] DR RODGERS, BMPon 09-22-2023 Anion gap [Moles/Vol] 11 mmol/L 7 - 16 [facility] Calcium [Mass/Vol] 8.7 mg/dL [facility] Chloride [Moles/Vol] 109 mmol/L [facility] CO2 [Moles/Vol] 21 mmol/L [facility] Creatinine [Mass/Vol] 0.7 mg/dL [facility] GFR/1.73 sq M.predicted MDRD (S/P/Bld) [Vol rate/Area] - PINF [facility] Comment on above: These results are not intended for use in patients <18 years of age. eGFR results are calculated without a race factor using the 2020 CKD-EPI equation. Careful clinical correlation is recommended, particularly when comparing to results calculated using previous equations. The CKD-EPI equation is less accurate in patients with extremes of muscle mass, extra-renal metabolism of creatine, excessive creatine ingestion, or following therapy that affects renal tubular secretion. Glucose [Mass/Vol] 110 mg/dL High [facility] Interpretation and review of laboratory results Abnormal [facility] Potassium [Moles/Vol] 3.4 mmol/L Low [facility] Sodium [Moles/Vol] 141 mmol/L [facility] Urea nitrogen [Mass/Vol] 8 mg/dL [facility] Brain Natriuretic Peptideon 09-22-2023 Pro-BNP PG/ML NINF - 300 PG/ML [facility] Comment on above: WE HAVE CONVERTED FROM BNP TO NT-proBNP Our reference range to RULE OUT acute CHF is <300pg/ml. To RULE IN acute CHF please use the following reference ranges derived from the PRIDE study. <50yrs >450pg/ml 50-75yrs >900pg/ml >75yrs >1800pg/ml CBC AND DIFFERENTIALon 09-21 Basophils/100 WBC (Bld) 0.5 % Normal 0-1 [facility] Comment on above: Performed By: #### C D, EBCG, HCGQL, TROTHS, PBNP #### ([place]) [facility] ([id number]) [address] [place] [address] DR RODGERS, DIFF METHOD AUTOMATED DIFFERENTIAL Normal [facility] Comment on above: Performed By: #### C D, EBCG, HCGQL, TROTHS, PBNP #### ([place]) [facility] ([id number]) [address] [place] [address] DR RODGERS, Eosinophils/100 WBC (Bld) 0.2 % Normal 0-3 [facility] Comment on above: Performed By: #### C D, EBCG, HCGQL, TROTHS, PBNP #### ([place]) [facility] ([id number] [address] DR RODGERS, Erythrocyte distribution width (RBC) [Ratio] 13.6 % Normal 11.7-14.9 [facility] Comment on above: Performed By: #### C D, EBCG, HCGQL, TROTHS, PBNP #### ([place]) [facility] ([id number]) [address] [place] [address] DR RODGERS, Hematocrit (Bld) [Volume fraction] 40.1 % Normal 37-47 [facility] Comment on above: Performed By: #### C D, EBCG, HCGQL, TROTHS, PBNP #### ([place]) [facility] ([id number] [place] [address] DR RODGERS, Hemoglobin (Bld) [Mass/Vol] 12.5 g/dL Normal 12.5-16.0 [facility] Comment on above: Performed By: #### Cristofer Thomas, EBCG, HCGQL, TROTHS, PBNP #### ([place]) [facility] ([id number] [place] [address] DR RODGERS, Lymphocytes/100 WBC (Bld) 14.2 % Low 24-44 [facility] Comment on above: Performed By: #### C D, EBCG, HCGQL, TROTHS, PBNP #### ([place]) [facility] ([id number]) [address] [place] [address] DR RODGERS, MCH (RBC) [Entitic mass] 27.5 pg Normal 27-31 [facility] Comment on above: Performed By: #### C D, EBCG, HCGQL, TROTHS, PBNP #### ([place]) [facility] ([id number]) [address] [place] [address] DR RODGERS, MCHC 31.2 % Low 32.0-36.0 [facility] Comment on above: Performed By: #### C D, EBCG, HCGQL, TROTHS, PBNP #### ([place]) [facility] ([id number]) [address] [place] [address] DR RODGERS, MCV (RBC) [Entitic vol] 88.1 fL Normal 78-100 [facility] Comment on above: Performed By: #### C D, EBCG, HCGQL, TROTHS, PBNP #### ([place]) [facility] ([id number]) [address] [place] [address] DR RODGERS, Monocytes/100 WBC (Bld) 5.3 % High 0-4 [facility] Comment on above: Performed By: #### C D, EBCG, HCGQL, TROTHS, PBNP #### ([place]) [facility] ([id number] [place] [address] DR RODGERS, Neutrophils/100 WBC (Bld) 0.4 % Normal 0-0.43 [facility] Comment on above: Performed By: #### C D, EBCG, HCGQL, TROTHS, PBNP #### ([place]) [facility] ([id number] [place] [address] DR RODGERS, Nucleated RBC/100 WBC (Bld) [Ratio] 0.0 % Normal [facility] Comment on above: Performed By: #### C D, EBCG, HCGQL, TROTHS, PBNP #### ([place]) [facility] ([id number] [place] [address] DR RODGERS, PLATELET COUNT 149 K/CU MM Normal 140-440 [facility] Comment on above: Performed By: #### C D, EBCG, HCGQL, TROTHS, PBNP #### ([place]) [facility] ([id number] [place] [address] DR RODGERS, Platelet mean volume (Bld) [Entitic vol] 12.7 fL High 7.5-11.1 [facility] Comment on above: Performed By: #### C D, EBCG, HCGQL, TROTHS, PBNP #### ([place]) [facility] ([id number]) [address] [place] [address] DR RODGERS, RED CELL COUNT 4.55 M/CU MM Normal 4.2-5.4 [facility] Comment on above: Performed By: #### C D, EBCG, HCGQL, TROTHS, PBNP #### ([place]) [facility] ([id number]) [address] [place] [address] DR RODGERS, Segmented neutrophils/100 WBC (Bld) 79.4 % High 36-66 [facility] Comment on above: Performed By: #### C D, EBCG, HCGQL, TROTHS, PBNP #### ([place]) [facility] ([id number]) [address] [place] [address] DR RODGERS, TOTAL BASOPHIL 0.1 K/CU MM Normal [facility] Comment on above: Performed By: #### C D, EBCG, HCGQL, TROTHS, PBNP #### ([place]) [facility] ([id number]) [address] [place] [address] DR RODGERS, TOTAL EOSINOPHIL 0.0 K/CU MM Normal [facility] Comment on above: Performed By: #### C D, EBCG, HCGQL, TROTHS, PBNP #### ([place]) [facility] ([id number]) [address] [place] [address] DR RODGERS, TOTAL IMMATURE NEUTROPHIL 0.04 K/CU MM Normal [facility] Comment on above: Performed By: #### C D, EBCG, HCGQL, TROTHS, PBNP #### ([place]) [facility] ([id number]) [address] [place] [address] DR RODGERS, TOTAL LYMPHOCYTE 1.4 K/CU MM Normal [facility] Comment on above: Performed By: #### C D, EBCG, HCGQL, TROTHS, PBNP #### ([place]) [facility] ([id number]) [address] [place] [address] DR RODGERS, TOTAL MONOCYTE 0.5 K/CU MM Normal [facility] Comment on above: Performed By: #### C D, EBCG, HCGQL, TROTHS, PBNP #### ([place]) [facility] ([id number]) [address] [place] [address] DR RODGERS, TOTAL NUCLEATED RBC 0.0 K/CU MM Normal [facility] Comment on above: Performed By: #### C D, EBCG, HCGQL, TROTHS, PBNP #### ([place]) [facility] ([id number]) [address] [place] [address] DR RODGERS, TOTAL SEGMENTED 7.8 K/CU MM Normal [facility] Comment on above: Performed By: #### C D, EBCG, HCGQL, TROTHS, PBNP #### ([place]) [facility] ([id number]) [address] [place] [address] DR RODGERS, WHITE CELL COUNT 9.8 K/CU MM Normal 4.0-10.5 [facility] Comment on above: Performed By: #### C D, EBCG, HCGQL, TROTHS, PBNP #### ([place]) [facility] ([id number]) [address] [place] [address] DR RODGERS, Basophils/100 WBC (Bld) 0.5 % Normal 0-1 [facility] Comment on above: Performed By: #### C D, CMPR, LIPA #### ([place]) [facility] ([id number]) [address] [place] [address] DR RODGERS, DIFF METHOD AUTOMATED DIFFERENTIAL Normal [facility] Comment on above: Performed By: #### C D, CMPR, LIPA #### ([place]) [facility] ([id number]) [address] [place] [address] DR RODGERS, Eosinophils/100 WBC (Bld) 0.7 % Normal 0-3 [facility] Comment on above: Performed By: #### C D, CMPR, LIPA #### ([place]) [facility] ([id number]) [address] [place] [address] DR RODGERS, Erythrocyte distribution width (RBC) [Ratio] 13.4 % Normal 11.7-14.9 [facility] Comment on above: Performed By: #### C D, CMPR, LIPA #### ([place]) [facility] ([id number] [place] [address] DR RODGERS, Hematocrit (Bld) [Volume fraction] 41.1 % Normal 37-47 [facility] Comment on above: Performed By: #### C D, CMPR, LIPA #### ([place]) [facility] ([id number] [place] [address] DR RODGERS, Hemoglobin (Bld) [Mass/Vol] 13.0 g/dL Normal 12.5-16.0 [facility] Comment on above: Performed By: #### C D, CMPR, LIPA #### ([place]) [facility] ([id number] [place] [address] DR RODGERS, Lymphocytes/100 WBC (Bld) 24.0 % Normal 24-44 [facility] Comment on above: Performed By: #### C D, CMPR, LIPA #### ([place]) [facility] ([id number] [place] [address] DR RODGERS, MCH (RBC) [Entitic mass] 27.5 pg Normal 27-31 [facility] Comment on above: Performed By: #### C D, CMPR, LIPA #### ([place]) [facility] ([id number] [place] [address] DR RDOGERS, MCHC 31.6 % Low 32.0-36.0 [facility] Comment on above: Performed By: #### C D, CMPR, LIPA #### ([place]) [facility] ([id number] [place] [address] DR RODGERS, MCV (RBC) [Entitic vol] 87.1 fL Normal 78-100 [facility] Comment on above: Performed By: #### C D, CMPR, LIPA #### ([place]) [facility] ([id number] [place] [address] DR RODGERS, Monocytes/100 WBC (Bld) 6.8 % High 0-4 [facility] Comment on above: Performed By: #### C D, CMPR, LIPA #### ([place]) [facility] ([id number] [place] [address] DR RODGERS, Neutrophils/100 WBC (Bld) 0.3 % Normal 0-0.43 [facility] Comment on above: Performed By: #### C D, CMPR, LIPA #### ([place]) [facility] ([id number] [place] [address] DR RODGERS, Nucleated RBC/100 WBC (Bld) [Ratio] 0.0 % Normal [facility] Comment on above: Performed By: #### C D, CMPR, LIPA #### ([place]) [id number] [place] [address] DR RODGERS, PLATELET COUNT 156 K/CU MM Normal 140-440 [facility] Comment on above: Performed By: #### C D, CMPR, LIPA #### ([place]) [facility] ([id number] [place] [address] DR RODGERS, Platelet mean volume (Bld) [Entitic vol] 12.0 fL High 7.5-11.1 [facility] Comment on above: Performed By: #### C D, CMPR, LIPA #### ([place]) [facility] ([id number] [place] [address] DR RODGERS, RED CELL COUNT 4.72 M/CU MM Normal 4.2-5.4 [facility] Comment on above: Performed By: #### C D, CMPR, LIPA #### ([place]) [facility] ([id number] [place] [address] DR RODGERS, Segmented neutrophils/100 WBC (Bld) 67.7 % High 36-66 [facility] Comment on above: Performed By: #### C D, CMPR, LIPA #### ([place]) [facility] ([id number] [place] [address] DR RODGERS, TOTAL BASOPHIL 0.0 K/CU MM Normal [facility] Comment on above: Performed By: #### C D, CMPR, LIPA #### ([place]) [address] [place] [address] DR RODGERS, TOTAL EOSINOPHIL 0.1 K/CU MM Normal [facility] Comment on above: Performed By: #### C D, CMPR, LIPA #### ([place]) [address] [place] [address] DR RODGERS, TOTAL IMMATURE NEUTROPHIL 0.03 K/CU MM Normal [facility] Comment on above: Performed By: #### C D, CMPR, LIPA #### ([place]) [address] RODGERS, TOTAL LYMPHOCYTE 2.1 K/CU MM Normal [facility] Comment on above: Performed By: #### C D, CMPR, LIPA #### ([place]) [address] [place] [address] DR RODGERS, TOTAL MONOCYTE 0.6 K/CU MM Normal [facility] Comment on above: Performed By: #### C D, CMPR, LIPA #### ([place]) [address] [place] [address] DR RODGERS, TOTAL NUCLEATED RBC 0.0 K/CU MM Normal [facility] Comment on above: Performed By: #### C D, CMPR, LIPA #### ([place]) [facility] ([id number] [place] [address] DR RODGERS, TOTAL SEGMENTED 5.9 K/CU MM Normal [facility] Comment on above: Performed By: #### C D, CMPR, LIPA #### ([place]) [address] [place] [address] DR RODGERS, WHITE CELL COUNT 8.7 K/CU MM Normal 4.0-10.5 [facility] Comment on above: Performed By: #### C D, CMPR, LIPA #### ([place]) [facility] ([id number]) [address] [place] [address] DR RODGERS, CBC with Auto Differentialon 09-22-2023 Basophils (Bld) [#/Vol] 0.1 10*3/uL K/CU MM [facility] Basophils/100 WBC (Bld) 0.5 % 0 - 1 % [facility] Differential Type AUTOMATED DIFFERENTIAL [facility] Eosinophils Absolute 0.0 K/CU MM [facility] Eosinophils/100 WBC (Bld) 0.2 % 0 - 3 % [facility] Hematocrit (Bld) [Volume fraction] 40.1 % 37 - 47 % [facility] Hemoglobin (Bld) [Mass/Vol] 12.5 g/dL [facility] Interpretation and review of laboratory results Abnormal [facility] Lymphocytes Absolute 1.4 K/CU MM [facility] Lymphocytes/100 WBC (Bld) 14.2 % Low 24 - 44 % [facility] MCH (RBC) [Entitic mass] 27.5 pg 27 - 31 PG [facility] MCHC (RBC) [Mass/Vol] 31.2 % Low 32.0 - 36.0 % [facility] MCV (RBC) [Entitic vol] 88.1 fL [facility] Monocytes Absolute 0.5 K/CU MM [facility] Monocytes/100 WBC (Bld) 5.3 % High 0 - 4 % [facility] Neutrophils/100 WBC (Bld) 79.4 % High 36 - 66 % [facility] Neutrophils/100 WBC (Bld) 0.4 % 0 - 0.43 % [facility] Nucleated RBC/100 WBC (Bld) [Ratio] 0.0 % [facility] Platelet distribution width (Bld) [Ratio] 13.6 % 11.7 - 14.9 % [facility] Platelet mean volume (Bld) [Entitic vol] 12.7 fL High [facility] Platelets (Bld) [#/Vol] 149 10*3/uL [facility] RBC (Bld) [#/Vol] 4.55 10*6/uL [facility] Segs Absolute 7.8 K/CU MM [facility] Total Immature Neutrophil 0.04 K/CU MM [facility] Total Nucleated RBC 0.0 K/CU MM [facility] S [facility] WBC (Bld) [#/Vol] 9.8 10*3/uL [facility] COMPREHEN. METABOLIC PANELon 09-22-2023 Albumin [Mass/Vol] 4.3 g/dL Normal 3.4-5.0 [facility] Comment on above: Performed By: #### C D, CMPR, LIPA #### ([place]) [id number] [place] [address] DR RODGERS, ALP [Catalytic activity/Vol] 90 U/L Normal 40-128 [facility] Comment on above: Performed By: #### C D, CMPR, LIPA #### ([place]) [id number] [place] [address] DR RODGERS, ALT [Catalytic activity/Vol] 15 U/L Normal 10-40 [facility] Comment on above: Performed By: #### C D, CMPR, LIPA #### ([place]) [place] [id number] [place] [address] DR RODGERS, Anion gap [Moles/Vol] 11 mmol/L Normal 7-16 [facility] Comment on above: Performed By: #### C D, CMPR, LIPA #### ([place]) [facility] ([id number] [place] [address] DR RODGERS, AST [Catalytic activity/Vol] 17 U/L Normal 15-37 [facility] Comment on above: Performed By: #### C D, CMPR, LIPA #### ([place]) [facility] ([id number] [place] [address] DR RODGERS, Bilirubin [Mass/Vol] 0.2 mg/dL Normal 0.0-1.0 [facility] Comment on above: Performed By: #### C D, CMPR, LIPA #### ([place]) [facility] ([id number]) [address] [place] [address] DR RODGERS, Calcium [Mass/Vol] 8.9 mg/dL Normal 8.3-10.6 [facility] Comment on above: Performed By: #### C D, CMPR, LIPA #### ([place]) [facility] ([id number]) [address] [place] [address] DR RODGERS, Chloride [Moles/Vol] 106 mmol/L Normal 99-110 [facility] Comment on above: Performed By: #### C D, CMPR, LIPA #### ([place]) [facility] ([id number] [address] DR RODGERS, CO2 [Moles/Vol] 24 mmol/L Normal 21-32 [facility] Comment on above: Performed By: #### C D, CMPR, LIPA #### ([place]) [facility] ([id number] [address] DR RODGERS, Creatinine [Mass/Vol] 0.9 mg/dL Normal 0.6-1.1 [facility] Comment on above: Performed By: #### C D, CMPR, LIPA #### ([place]) [facility] ([id number] [address] RODGERS, GFR/1.73 sq M.predicted among non-blacks MDRD (S/P/Bld) [Vol rate/Area] 89 mL/min/{1.73_m2} Normal >60 [facility] Comment on above: Result Comment: These results are not intended for use in patients <18 years of age. eGFR results are calculated without a race factor using the 2020 CKD-EPI equation. Careful clinical correlation is recommended, particularly when comparing to results calculated using previous equations. The CKD-EPI equation is less accurate in patients with extremes of muscle mass, extra-renal metabolism of creatine, excessive creatine ingestion, or following therapy that affects renal tubular secretion. Performed By: #### C D, CMPR, LIPA #### ([place]) [facility] ([id number]) [address] [place] [address] DR RODGERS, Glucose [Mass/Vol] 104 mg/dL High 70-99 [facility] Comment on above: Performed By: #### C William, CMPR, LIPA #### ([place]) [facility] ([id number]) [address] [place] [address] DR RODGERS, Potassium [Moles/Vol] 4.2 mmol/L Normal 3.5-5.1 [facility] Comment on above: Performed By: #### C William, CMPR, LIPA #### ([place]) [facility] ([id number]) [address] [place] [address] DR RODGERS, Protein [Mass/Vol] 8.1 g/dL Normal 6.4-8.2 [facility] Comment on above: Performed By: #### C William, CMPR, LIPA #### ([place]) [facility] ([id number]) [address] [place] [address] DR RODGERS, Sodium [Moles/Vol] 141 mmol/L Normal 135-145 [facility] Comment on above: Performed By: #### C William, CMPR, LIPA #### ([place]) [facility] ([id number]) [address] [place] [address] DR RODGERS, Urea nitrogen [Mass/Vol] 8 mg/dL Normal 6-23 [facility] Comment on above: Performed By: #### C William, CMPR, LIPA #### ([place]) [facility] ([id number]) [address] [place] [address] DR ORDGERS, COVID-19, Rapidon 09-22-2023 SARS-CoV-2 (COVID-19) RdRp gene ANGELICA+probe Ql (Resp) Not detected NOT DETECTED [facility] Comment on above: Rapid NAAT: The specimen is NEGATIVE for SARS-CoV-2, the novel coronavirus associated with COVID-19. Negative results should be treated as presumptive and, if inconsistent with clinical signs and symptoms or necessary for patient management, should be tested with an alternate molecular assay. Negative results do not preclude SARS-CoV-2 infection and should not be used as the sole basis for patient management decisions. This test has been authorized by the FDA under an Emergency Use Authorization (EUA) for use by authorized laboratories. The ID NOW COVID-19 assay is designed to detect the virus that causes COVID-19 in patients with signs and symptoms of infection who are suspected of COVID-19. An individual without symptoms of COVID-19 and who is not shedding SARS-CoV-2 virus would expect to have a negative (not detected) result in this assay. Fact sheet for Healthcare Providers: https://www.fda.gov/media/261959/download Fact sheet for Patients: https://www.fda.gov/media/703796/download METHODOLOGY: Isothermal Nucleic Acid Amplification Source UNKNOWN [facility] HCG Serum, Qualitativeon hCG Qual Negative [facility] Comment on above: REFERENCE RANGE: NEGATIVE A negative value or value in the indeterminate range does not rule out and if needed should be redrawn in 2 days and assayed again because HCG values in normal double every 48 hours. QUALITATIVE INTERPRETATION NEGATIVE <7.0 INDETERMINATE 7.0-25.0 POSITIVE >25.0 Influenza A/B MOLon 09-22-19 24 Influenza A/B MOL Influenza A Ag NOT DETECTED A negative result does not rule out Influenzae A&B. METHODOLOGY: Isothermal Nucleic Acid Amplification Influenza B Ag NOT DETECTED A negative result does not rule out Influenzae A&B. METHODOLOGY: Isothermal Nucleic Acid Amplification Normal [facility] Comment on above: Performed By: #### U AM, URMIC #### ([place]) [facility] ([id number]) [address] [place] [address] DR RODGERS, Influenza A/B, Molecularon 0 09-22-2023 Influenza A Antigen Not detected NOT DETECTED [facility] Comment on above: A negative result do es not rule out Influenzae A&B. METHODOLOGY: Isothermal Nucleic Acid Amplification Influenza B Antigen Not detected NOT DETECTED [facility] Comment on above: A negative result do es not rule out Influenzae A&B. METHODOLOGY: Isothermal Nucleic Acid Amplification [facility] LACTIC ACIDon 09-22-2023 LACTIC ACID 0.9 mMOL/L Normal 0.5-1.9 [facility] Comment on above: Performed By: #### U AM, URMIC #### ([place]) [facility] ([id number]) [address] [place] [address] DR RODGERS, LIPASEon 09-22-2023 Lipase [Catalytic activity/Vol] 22 U/L Normal 13-60 [facility] Comment on above: Performed By: #### C D, CMPR, LIPA #### ([place]) [facility] ([id number]) [address] [place] [address] DR RODGERS, Lactic Acidon 09-22-2023 Lactate [Moles/Vol] 0.9 mmol/L [facility] No Panel Informationon 09-21 [facility] Portable XR Chest AP single viewon 09-22-2023 Impression: 1. No acute cardiopulmonary disease. Electronically signed by MD [facility] History: Syncope. Comparison: None. Findings: Portable AP view of the chest was obtained. The lungs are clear. Cardiomediastinal contours are normal. There is no pleural effusion or pneumothorax. [facility] CONSOL[facility] Sahil Scales MD - 09/22/2023 History: Syncope. Comparison: None. Findings: Portable AP view of the chest was obtained. The lungs are clear. Cardiomediastinal contours are normal. There is no pleural effusion or pneumothorax. IMPRESSION: Impression: 1. No acute cardiopulmonary disease. Electronically signed by Sahil Scales MD [facility] Radiology Study observation (narrative) [facility] Portable XR Chest AP single viewOrdered By: Sahil Scales on 09-22-2023 [facility] Work Phone: ProBNPon 09-22-2023 ProBNP <36 Normal <300 [facility] Comment on above: Result Comment: WE HAVE CONVERTED FROM BNP TO NT-proBNP Our reference range to RULE OUT acute CHF is <300pg/ml. To RULE IN acute CHF please use the following reference ranges derived from the PRIDE study. <50yrs >450pg/ml 50-75yrs >900pg/ml >75yrs >1800pg/ml Performed By: #### U AM, URMIC #### ([place]) [facility] ([id number]) [address] [place] [address] DR RODGERS, QUALITATIVE HCGon 09-22-2023 QUALITATIVE HCG Negative Normal [facility] Comment on above: Result Comment: REFERENCE RANGE: NEGATIVE A negative value or value in the indeterminate range does not rule out and if needed should be redrawn in 2 days and assayed again because HCG values in normal double every 48 hours. QUALITATIVE INTERPRETATION NEGATIVE <7.0 INDETERMINATE 7.0-25.0 POSITIVE >25.0 Performed By: #### C D, EBCG, HCGQL, TROTHS, PBNP #### ([place]) [facility] ([id number]) [address] [place] [address] DR RODGERS, SARS COV-2 RAPID TEST CORONO VIRUSon 09-22-2023 SARS-CoV-2 (COVID-19) RNA ANGELICA+probe Ql (Unsp spec) CORONAVIRUS SARS COVID SOURCE UNKNOWN SARS CoV-2, RAPID NOT DETECTED Rapid NAAT: The specimen is NEGATIVE for SARS-CoV-2, the novel coronavirus associated with COVID-19. Negative results should be treated as presumptive and, if inconsistent with clinical signs and symptoms or necessary for patient management, should be tested with an alternate molecular assay. Negative results do not preclude SARS-CoV-2 infection and should not be used as the sole basis for patient management decisions. This test has been authorized by the FDA under an Emergency Use Authorization (EUA) for use by authorized laboratories. The ID NOW COVID-19 assay is designed to detect the virus that causes COVID-19 in patients with signs and symptoms of infection who are suspected of COVID-19. An individual without symptoms of COVID-19 and who is not shedding SARS-CoV-2 virus would expect to have a negative (not detected) result in this assay. Fact sheet for Healthcare Providers: https://www.fda.gov/ media/573587/downloa d Fact sheet for Patients: https://www.fda.gov/ media/778722/downloa d METHODOLOGY: Isothermal Nucleic Acid Amplification [facility] Comment on above: Performed By: #### U AM, URMIC #### ([place]) [facility] ([id number]) [address] [place] [address] DR RODGERS, Surgical Pathologyon 024 Surgical Pathology (NOTE) Normal [facility] Comment on above: Result Comment: Spec quentin #[id number] Final Pathologic Diagnosis: Skin, rectal skin tag, excision: - Polypoid fragment of skin with dermal acute inflammation. Electronically Signed Out By Jessica Bowling MD Specimens Received: Rectal skin tag Gross Description: The specimen is received in formalin and labeled with the patient's name and rectal skin tag and consists of a piece of irregular skin measuring 1.2 x 0.7 x 0.6 cm. The resection margin is inked blue and the specimen is serially sectioned. The specimen is entirely submitted in one cassette. -- OSCAR Received: 2023 10:22 Collected: 09/22/2023 14:42 Reported: 09/24/2023 14:09 Performed By: #### U AM, URMIC #### ([place]) [facility] ([id number]) [address] [place] [address] DR RODGERS, TROPONIN, HIGH SENSITIVITYon 09-22-2023 TROPONIN, HIGH SENS 8 ng/L Normal 0-14 [facility] Comment on above: Performed By: #### U AM, URMIC #### ([place]) [facility] ([id number]) [address] [place] [address] DR RODGERS, TROPONIN, HIGH SENS 9 ng/L Normal 0-14 [facility] Comment on above: Performed By: #### C D, EBCG, HCGQL, TROTHS, PBNP #### ([place]) [facility] ([id number]) [address] [place] [address] DR RODGERS, Troponin Now and Q1Hron 09-01 Troponin, High Sensitivity 8 ng/L 0 - 14 ng/L [facility] Troponin, High Sensitivity 9 ng/L 0 - 14 ng/L [facility] URINALYSIS (MICRO)on 024 RBC (U) [#/Vol] /uL Normal 0-6 [facility] Comment on above: Performed By: #### U AM, URMIC #### ([place]) [facility] ([id number] [address] DR RODGERS, SQUAMOUS EPITHELIAL <1 Normal [facility] Comment on above: Performed By: #### U AM, URMIC #### ([place]) [facility] ([id number] [address] DR RODGERS, TRICHOMONAS NONE SEEN Normal [facility] Comment on above: Performed By: #### U AM, URMIC #### ([place]) [facility] ([id number] [place] [address] DR RODGERS, UR BACTERIA Negative Normal NEG [facility] Comment on above: Performed By: #### U AM, URMIC #### ([place]) [facility] ([id number] [place] [address] DR RODGERS, URINE MUCOUS RARE Abnormal NEG [facility] Comment on above: Performed By: #### U AM, URMIC #### ([place]) [facility] ([id number] [place] [address] DR RODGERS, URINE WBC 1 /HPF Normal 0-5 [facility] Comment on above: Performed By: #### U AM, URMIC #### ([place]) [facility] ([id number] [place] [address] DR RODGERS, URINALYSIS RFX MICROSCOPICon 09-22-2023 Bilirubin Ql (U) Negative Normal NEG [facility] Comment on above: Performed By: #### U AM, URMIC #### ([place]) [facility] ([id number]) [address] [place] [address] DR RODGERS, Clarity (U) CLEAR Normal CLEAR [facility] Comment on above: Performed By: #### U AM, URMIC #### ([place]) [facility] ([id number] [place] [address] DR RODGERS, Color (U) YELLOW Normal UYELL [facility] Comment on above: Performed By: #### U AM, URMIC #### ([place]) [facility] ([id number] [place] [address] DR RODGERS, Glucose Ql (U) Negative Normal NEG [facility] Comment on above: Performed By: #### U AM, URMIC #### ([place]) [facility] ([id number] [address] DR RODGERS, Hemoglobin Ql (U) TRACE Abnormal NEG [facility] Comment on above: Performed By: #### U AM, URMIC #### ([place]) [facility] ([id number] [place] [address] DR RODGERS, Nitrite Ql (U) Negative Normal NEG [facility] Comment on above: Performed By: #### U AM, URMIC #### ([place]) [facility] ([id number] [place] [address] DR RODGERS, pH (U) 5.5 [pH] Normal 5.0-8.0 [facility] Comment on above: Performed By: #### U AM, URMIC #### ([place]) [facility] ([id number] [place] [address] DR RODGERS, UR LEUKOESTERASE Negative Normal NEG [facility] Comment on above: Performed By: #### U AM, URMIC #### ([place]) [facility] ([id number] [place] [address] DR RODGERS, UR SPEC GRAVITY 1.025 Normal 1.001-1.035 [facility] Comment on above: Performed By: #### U AM, URMIC #### ([place]) [facility] ([id number] [place] [address] DR RODGERS, UR UROBILINOGEN 0.2 MG/DL Normal 0.2-1.0 [facility] Comment on above: Performed By: #### U AM, URMIC #### ([place]) [place] [id number] [place] [address] DR RODGERS, URINE KETONE Negative Normal NEG [facility] Comment on above: Performed By: #### U AM, URMIC #### ([place]) [place] [id number] [place] [address] DR RODGERS, URINE PROTEIN FOR URINALYSIS O Negative Normal NEG [facility] Comment on above: Performed By: #### U AM, URMIC #### ([place]) [facility] ([id number]) [address] [place] [address] DR RODGERS, URINE HCG PROFILEon 09-22-19 Beta HCG ( test) Ql (U) Negative Normal NEG [facility] Comment on above: Performed By: #### H CGP #### ([place]) (DR ACE PENA) [facility] ([id number]) [address] [place] [address] DR RODGERS, [facility] [address] [place] [address], HCG INTERPRETATION Normal [facility] Comment on above: Result Comment: HCG Method Limitations: Very dilute specimens may have insufficient concentration of HCG to bring about a positive result. Performed By: #### H CGP #### ([place]) (DR ACE PENA) [facility] ([id number]) [address] [place] [address] DR RODGERS, [facility], XR CHEST PORTABLEon 09-22-19 24 XR CHEST PORTABLE History: Syncope. Comparison: None. Findings: Portable AP view of the chest was obtained. The lungs are clear. Cardiomediastinal contours are normal. There is no pleural effusion or pneumothorax. IMPRESSION: Impression: 1. No acute cardiopulmonary disease. Electronically signed by Sahil Scales MD Interpreted by: Sahil Scales MD Signed by: Sahil Scales MD 09/22/23 Final result Normal [facility] Comment on above: Order Comment: Reaso n for exam:->syncopeReason for exam?->syncope Vital Signs Date Time Vital Sign Value Performing Clinician Sandra ledesma 11-25-2024 00:51-0400 Body temperature 98.7 [degF] No Primary Care Physician [facility] 11-25-2024 00:51-0400 Diastolic blood pressure 73 mm[Hg] No Primary Care Physician [facility] 11-25-2024 00:51-0400 Heart rate 65 /min No Primary Care Physician [facility] 11-25-2024 00:51-0400 Respiratory rate 18 /min No Primary Care Physician [facility] 11-25-2024 00:51-0400 SaO2% (BldA) [Mass fraction] 98 % No Primary Care Physician [facility] 11-25-2024 00:51-0400 Systolic blood pressure 111 mm[Hg] No Primary Care Physician [facility] 11-24-2024 18:26-0400 Body height 172.72 cm No Primary Care Physician [facility] 11-24-2024 18:26-0400 Body mass index (BMI) [Ratio] 30.2 kg/m2 No Primary Care Physician [facility] 11-24-2024 18:26-0400 Body weight 90.26 kg No Primary Care Physician [facility] 09-22-2023 16:20-0400 Body temperature 97.81 [degF] Christopher Seager DO Work Phone: [facility] [employer] 09-22-2023 16:20-0400 Diastolic blood pressure 79 mm[Hg] Christopher Seager DO Work Phone: [facility] 09-22-2023 16:20-0400 Heart rate 75 /min Christopher Seager DO Work Phone: [facility] 09-22-2023 16:20-0400 Respiratory rate 16 /min Christopher Seager DO Work Phone: [facility] 09-22-2023 16:20-0400 SaO2% (BldA) [Mass fraction] 97 % Christopher Seager DO Work Phone: [facility] 09-22-2023 16:20-0400 Systolic blood pressure 112 mm[Hg] Christopher Seager DO Work Phone: [facility] [employer] Encounters Encounter Date Encounter Type Care Provider Facility Start: 11-24-2024 End: 11-25-2024 Emergency department patient visit No Primary Care Physician -Emergency Department Work Phone: Start: 08-09-2024 End: 08-09-2024 Emergency department patient visit NONE PHYSICIAN Facility:[facility] Start: 10-08-2023 ambulatory RENO Casiano [facility] Ambulatory Start: 09-22-2023 Emergency department patient visit LYUDMILA Parmar FELI [facility] Start: 09-22-2023 End: 09-22-2023 Emergency department patient visit Physician No [facility] Start: 09-22-2023 End: 09-22-2023 Emergency department patient visit Sarbjitgerson Ghulam Jin DO Work Phone: [facility] OR Comment on above: Syncope and collapse (Primary Dx); Vasovagal syncope; Thrombosed external hemorrhoid; Anal pain; Rectal pain Start: 09-22-2023 End: 09-22-2023 Emergency department patient visit Physician No [facility] Procedures Date Procedure Procedure Detail Performing Clinician Start: 11-24-2024 Estimated creatinine clearance No Primary Care Physician Start: 09-22-2023 Assay of lactate Bert len Jin DO Work Phone: Start: 09-22-2023 Ecg routine ecg w/le ast 12 lds w/i&r Lyudmila Jin DO Work Phone: Start: 09-22-2023 Radiologic exam ches t single view Lyudmila Jin DO Work Phone: Start: 09-22-2023 Basic metabolic pane l calcium total Bertlen Jin DO Work Phone: Start: 09-22-2023 COVID-19, RAPID Danieltyler Jin DO Work Phone: Start: 09-22-2023 INFLUENZA A/B, MOLECULAR Lyudmila Jin DO Work Phone: Plan of Treatment Date Care Activity Detail Author Start: 11-25-2024 [facility] Start: 11-24-2024 Computed tomography of abdomen and pelvis with intravenous contrast Abdomen/Pelvis W IV Cont ONLY [facility] Start: 11-24-2024 CT Abdomen and Pelvi s W contrast IV [facility] Start: 11-24-2024 Enteric precautions [facility] Start: 01-01-2024 Influenza vaccination Flu vacc ine (Season Ended) [facility] Start: 2014 Screening for malign ant neoplasm of cervix Pap smear [facility] Start: 2012 DTaP/Tdap/Td vaccine (1 - Tdap) DTaP/Tdap/Td vaccine (1 - Tdap) [facility] Start: 09-24-2011 Hepatitis C screening Hepatitis C sc reen [facility] Start: 2008 HIV screening HIV screen [facility] Start: 2005 Depression Screen Depression Screen [facility] Start: 1994 Varicella vaccine (1 of 2 - 2-dose childhood series) Varicella vaccine (1 of 2 - 2-dose childhood series) [facility] Start: 03-25-1994 COVID-19 Vaccine (#1) COVID-19 Vacci ne (#1) [facility] Start: 1993 Hepatitis B vaccine (1 of 3 - 3-dose series) Hepatitis B vaccine (1 of 3 - 3-dose series) [facility] Clostridioides diffi cile DNA [Presence] in Unspecified specimen by ANGELICA with probe detection [facility] EKG 12 Lead EKG 12 Lead ECG Routine 09/22/2023 12:39 PM EDT [facility] End: 09-22-2023 INITIATE PACU OXYGEN THERAPY PROTOCOL Initiate PACU Oxygen Therapy Protocol Respiratory Care Routine Continuous until discontinued starting 09/22/2023 [facility] Work Phone: Comment on above: Continuous until dis continued starting 09/22/2023 Lactoferrin [Presenc e] in Stool by Immunoassay [facility] Nucleic acid assay [facility]va OR parasites identification [facility] Patient Education Abdominal Pain ED Diet Vomiting Diarrhea [facility] Work Phone: Patient referral [facility] Work Phone: Surgical Pathology Surgical Path ology Lab Routine Anal pain Release Upon Ordering for 1 Occurrences starting 09/22/2023 [facility] Comment on above: Release Upon Orderin g for 1 Occurrences starting 09/22/2023 End: 09-22-2023 Urinalysis with Reflex to Culture Urinalysis with Reflex to Culture Lab Routine One Time for 1 Occurrences starting 09/22/2023 until 09/22/2023 NONO Comment on above: One Time for 1 Occur rences starting 09/22/2023 until 09/22/2023 Payers Date Payer Category Payer Private Health Insurance [id number] 2024 Self-pay 2021 Medicaid [id number] 2013 Medicaid [id number] 1993 Unknown [id number] 1993 Unknown [id number] 1993 Unknown [id number] Unknown [id number] Social History Date Type Detail Facility Start: 08-13-2021 End: 11-24-2024 Tobacco smoking status HIIS Never smoked tobacco [facility] Start: 08-13-2021 Tobacco use and exposure Smokeless tobacco non-user [facility] Start: 09-22-2023 Alcohol intake Ex-drinker (finding) [facility] Start: 08-14-2021 End: 08-16-2021 History of Social function NONO Start: 08-14-2021 End: 08-16-2021 Tobacco use panel [facility] Last EPDS Total Score Not on file [facility] [employer] The thought of harmi ng myself has occurred to me Never [facility]O Start: 1993 Sex Assigned At Not on file [facility] Start: 1993 Sex Assigned At Female W [facility] History of Present illness Narrative 09-22-2023 Michelle Negro RN - 09/22/2023 7:01 PM Mei Borja RN - 09/22/2023 3:54 PM Sandra Ryan RN - 09/22/2023 1:28 PM EDT Note Date & Type Note Facility 09-22-2023 History of Present illness Narrative 1547 Pt received from PACU and report received from Mei CASON. Pt Drowsy but awakens easily. Pt given water. Call light in reach. 1615 DR. Guillen in room to discuss POC. Used IPAD diplomatic interpreter. Dicharge instructions given to her as well. Pt voiced understanding of instructions. Called pt to pick her up. 1640 Pt here. Pt belongings given to her. Pt ready to get dressed to go home. Call light in reach. Pt denies c/o or needs. 1647 Pt discharged to home per wheelchair to husbands vehicle to drive home. 1506- pt received from OR. Monitors placed and alarms on. Report received from Tiana FLOREZ. Pt drowsy but arouses to name being called. 1515- pt repositioned in bed. Linens clean and dry. Pt denies any pain or nausea. 1525- pt resting comfortably. Denies any pain or nausea. Pt encouraged to cough and deep breathe. 1540- pt resting comfortably. Denies any needs at this time. 1544- pt transported to [facility] by RN and bedside report given to Michelle CASON. Session [id number], Jeison - [id number] documented in this encounter [facility] Discharge instructions 09-22-2023 Discharge InstructionsAttachments Note Date & Type Note Facility 09-22-2023 Hospital Discharg e instructions Michelle Negro RN - 09/22/2023 2:04 PM EDT Images from the original note were not included. You were seen here today after passing out. This is likely due to vasovagal syncope which is a emotional stress or pain causing you to pass out. This is not a dangerous form of passing out. Return the emergency department immediately for any chest pain, repeat passing out, shortness of breath, fevers, new worsening or concerning complaints. I recommend you follow-up with a sill worker as soon as possible. Please follow-up with your surgeon regarding your external hemorrhoid. Follow all recommendations provided to you by your surgeon. Patient Discharge Instructions Dr. Reno Guillen [address] [facility] [address] [place] [address] Discharge Date: 09/22/2023 Discharged To: Home RESUME ACTIVITY: Sitz baths or soak rectal area in bath twice daily and after every bowel movement. Take pain medications as prescribed. Take stool softeners as needed for constipation. DIET: [place] diet on day of surgery then regular diet. Take stool softeners such as milk of magnesia or MiraLAX as needed to avoid constipation. SPECIAL INSTRUCTIONS: If you use a CPAP at home, continue to use it as normal. Call the office at [phone] if you have a fever greater than or equal to 101 F or if your incision becomes red, tender, or has drainage of pus. If follow up appointment was not given to you, call the Surgical Clinic at [phone] for follow up appointment with Dr. Guillen in: 1-2 weeks. [facility] [phone], work around machines or use equipment. Do not drink any alcoholic beverages. Do not smoke while alone. Avoid making important decisions. Plan to spend a quiet, relaxed evening @ home. Resume normal activities as you begin to feel better. Eat lightly for your first meal, then gradually increase your diet to what is normal for you. In case of nausea, avoid food and drink only clear liquids. Resume food as nausea ceases. Notify your surgeon if you experience fever, chills, large amount of bleeding, difficulty breathing, persistent nausea and vomiting or any other disturbing problem. Call for a follow-up appointment with your surgeon. About a Sitz Bath Doctors may suggest a sitz bath to ease pain and increase blood flow to your perineum or genitals. Your perineum is the part of your body between your vagina or scrotum and your rectum. A sitz bath may also help with burning, itching or swelling. You may need to do a sitz bath if you have: Hemorrhoids Small tears around your rectum called anal fissures Had a vaginal delivery A vaginal infection Prostate problems General Most of the time, your doctor will want you to do a sitz bath 3 or 4 times a day for 10 -15 minutes each time. Your doctor may want you to do your sitz bath with plain water. Or, your doctor may have you add something to your sitz bath to make it work better. You can do your sitz bath in a couple of ways: In a clean bathtub - Sit in 2-3 inches of warm water in the tub. Add more warm water if the water cools. Do not add soap, bubble bath or shower gel to the Water. Using a small plastic basin or tub that fits over an open toilet seat. Either pour warm water into the basin or use the plastic bag and tubing to fill the basin after sitting down. Extra water will flow into the toilet and can be flushed. Dry your bottom afterwards with care. Use a soft, clean towel. Use care when you stand up after the sitz bath. When do I need to call the doctor? If you have more pain, redness, itching or swelling to your perineum or genitals. If you have any signs of infection. These include a fever of 100.4' or higher, chills. Helpful Hints Use bleach or other household hand glove cleaner to clean the tub or basin after each use. Rinse well to remove all of the hand glove cleaner or bleach. The following attachments cannot be sent through Care Everywhere.Hemorrhoids (somali)documented in this encounter [facility] Evaluation note Note Date & Type Note Facility Evaluation note Diagnosis Syncope and collapse- Primary Vasovagal syncope Syncope and collapse Thrombosed external hemorrhoid External thrombosed hemorrhoids Anal pain Anal or rectal pain Rectal pain Anal or rectal pain Rectal pain Anal or rectal pain documented in this encounter [facility] Evaluation note Note Date & Type Note Facility Evaluation note No assessment information availa [facility] Work Phone: Hospital Discharge instructions Note Date & Type Note Facility Hospital Discharge instructions Additional Instructions Your CT scan shows no sign of intestinal abnormality and your labs revealed no clinically significant findings. With your negative workup today but prolonged symptoms you need to follow-up with gastroenterology/Dr. Ribeiro as you may need an EGD and colonoscopy to further assess the cause of your recurrent symptoms [facility] Work Phone: Reason for referral (narrative) Note Date & Type Note Facility Reason for referral (narrative) No reason for referral information available [facility] Work Phone: Advance Directives No Advanced Directives Records FoundLatest Code Status on File Code Status Date Activated Date Inactivated Comments Full Code 08/16/2021 11:44 AM 08/16/2021 7:25 PM Code Status History Code Status Date Activated Date Inactivated Comments Full Code 08/13/2021 4:47 PM 08/14/2021 1:56 AM Advance Directive Response Recorded Date/ Time Do you have a Healthcare Power of Attendant Lodging Facilities? No November 24, 2024 10:26pm Summary Purpose Family History No Family History Records FoundNo Family History Records FoundNo Family History Records FoundNo Family History Records Found Chief Complaint and Reason for Visit Chief Complaint Admit Date ABD PAIN November 24, 2024 6:25 pm Additional Source Comments Reason for Visit (unrecogniz ed section and content) Reason Comments Loss of Consciousness Ordered Prescriptions (unrec ognized section and content) Prescription Sig Dispensed Refills Start Date End Da te amoxicillin-clavulana te (AUGMENTIN) 875-125 MG per tablet Take 1 tablet by mouth 2 times daily for 7 days 14 tablet 0 09/22/2023 09/29/2023 docusate sodium (COLACE) 100 MG capsule Take 1 capsule by mouth daily as needed for Constipation 30 capsule 0 09/22/2023 magnesium hydroxide (MILK OF MAGNESIA) 400 MG/5ML suspension Take 30 mLs by mouth daily as needed for Constipation 1 each 1 09/22/2023 HYDROcodone-acetamino phen (NORCO) 5-325 MG per tabletIndications:Hunter pain,Rectal pain Take 1 tablet by mouth every 4 hours as needed for Pain for up to 5 days. Intended supply: 3 days. Take lowest dose possible to manage pain Max Daily Amount: 6 tablets 25 tablet 0 09/22/2023 09/27/2023 Misc. Devices (SITZ BATH) MISC 1 each by Does not apply route in the morning and at bedtime for 14 days Sitz bath BID and after every bowel movement. 1 each 1 09/22/2023 10/06/2023 Scheduled Active and Recently Administ ered Medications (unrecognized section and content) Medication Order 09/20/2023 09/21/2023 09/22/2023 fentaNYL (SUBLIMAZE) injection 50 mcg (COMPLETED) 50 mcg, IntraVENous, ONCE, 1 dose, On Fri09/22/23 at 1130, If oral and IV narcotics ordered, use oral first and only use IV if oral is ineffective or cannot take oral. Do Not give oral and IV within 1 hour of each other unless specifically ordered. 1203 (Given - Provid er: Adryan Collier RN) ketorolac (TORADOL) injection 15 mg (COMPLETED) 15 mg, IntraVENous, ONCE, 1 dose, On Fri09/22/23 at 1130, Do not administer for more than 5 days. 1203 (Given - Provid er: Adryan Collier RN) lidocaine (XYLOCAINE) 2 % jelly Topical, ONCE, On Fri09/22/23 at 1200, For 1 dose, Apply to hemorrhoid 1200 (Due) sodium chloride flush 0.9 % injection 5-40 mL 5-40 mL, IntraVENous, EVERY 12 HOURS SCHEDULED (2 times per day), First dose on Fri09/22/23 at 2100, Until Discontinued, For Line Patency: Peripheral IV = 5 mL; Midline or Central Line = 10 mL/lumen. If following IV push medication, administer flush at same rate as the IV push. Flush volume is determined by type of infusion therapy being given. For non-viscous solutions use: Peripheral IV = 5 mL Midline or Central Line = 10 mL/lumen For viscous solutions (i.e. blood components, parenteral nutrition, contrast media, or after obtaining blood sample) use: Peripheral IV = 10 mL Midline or Central Line = 20 mL/lumen, PACU only 2100 (Due) Continuous Medication Order 09/20/2023 09/21/2023 09/22/2023 0.9 % sodium chloride infusion (CANCELED) IntraVENous, at 100 mL/hr, CONTINUOUS, Starting on Fri09/22/23 at 1415, Intra-op 1400 (New Bag - Prov ider: Susie Love RN)1410 (NoRateChange - Provider: OLEGARIO Oliver CRNA)1456 (Paused - Provider: OLEGARIO Oliver CRNA - Comment: Switch to gravity)1457 (Restarted - Provider: OLEGARIO Oliver CRNA) PRN Medication Order 09/20/2023 09/21/2023 09/22/2023 0.9 % sodium chloride infusion IntraVENous, at 5-250 mL/hr, PRN, if patient receiving piggyback infusions and maintenance fluids are not ordered OR KVO fluids to protect IV site / prevent frequent line interruptions/ long duration, Starting on Fri09/22/23 at 1449, For piggyback infusion, administer at same rate as piggyback for a total of 25 mL. Enter 25 mL into dose field and piggyback rate into rate field of order. If piggyback is infusing at a rate less than 100 mL/hr, enter 25 mL into dose field and 100 mL/hr into rate field of order. For KVO fluids, enter rate of 20 mL/hr or less into rate field of order., PACU only BUPivacaine liposome (EXPAREL) 1.3 % injection (COMPLETED) ONCE PRN, 1 dose, Starting on Fri09/22/23 at 1439, Until Fri09/22/23 at 1439, Intra-op 1439 (Given - Provid er: Reno Guillen, DO - Comment: rectum) droPERidol (INAPSINE) injection 0.625 mg 0.625 mg, IntraVENous, ONCE PRN, 1 dose, Starting on Fri09/22/23 at 1449, Until Fri09/23/23 at 1449, Nausea, Secondary antiemetic therapy., PACU only fentaNYL (SUBLIMAZE) injection 50 mcg 50 mcg, IntraVENous, EVERY 5 MIN PRN, 4 doses, Starting on Fri09/22/23 at 1449, Until Discontinued, Pain Severe (7-10), For Phase I. If Phase II oral narcotics have been administered in the last 60 minutes, do not administer IV narcotics unless specifically approved by provider., PACU only hydrALAZINE (APRESOLINE) injection 10 mg(Linked Group 1) 10 mg, IntraVENous, EVERY 15 MIN PRN, 2 doses, Starting on Fri09/22/23 at 1449, Until Discontinued, High Blood Pressure, for SBP greater than 180 mmHg for 2 consecutive measurements taken from different sites, If heart rate is greater than 60 bpm, hold hydralazine and use labetalol if ordered, otherwise contact provider. Inform provider if SBP is still greater than 180 mmHg 10 minutes after second antihypertensive dose is administered., PACU only HYDROmorphone (DILAUDID) injection 0.25 mg 0.25 mg, IntraVENous, EVERY 5 MIN PRN, 2 doses, Starting on Fri09/22/23 at 1449, Until Discontinued, Pain Moderate (4-6), For Phase I. If Phase II oral narcotics have been administered in the last 60 minutes, do not administer IV narcotics unless specifically approved by provider., PACU only labetalol (NORMODYNE;TRANDATE) injection 10 mg(Linked Group 1) 10 mg, IntraVENous, EVERY 15 MIN PRN, 2 doses, Starting on Fri09/22/23 at 1449, Until Discontinued, High Blood Pressure, for SBP greater than 180 mmHg for 2 consecutive measurements taken from different sites., If heart rate is 60 bpm or less hold labetalol and use hydralazine if ordered, otherwise contact provider. Inform provider if SBP is still greater than 180 mmHg, 10 minutes after second antihypertensive dose is administered., PACU only meperidine (DEMEROL) injection 12.5 mg 12.5 mg, IntraVENous, EVERY 5 MIN PRN, 4 doses, Starting on Fri09/22/23 at 1449, Until Discontinued, Shivering, , May give every 5 minutes to max of 50mg., PACU only naloxone 0.4 mg in 10 mL sodium chloride syringe IntraVENous, PRN, Opioid Reversal, Starting on Fri09/22/23 at 1449, PRN if respiratory rate is less than 6/min and patient is difficult to arouse then notify physician STAT. Mix 9 mL of sodium chloride 0.9% with 0.4 mg (1 mL) of naloxone (NARCAN) in 10 mL syringe. (Note: dilution is 0.04 mg/mL) Give 0.08 mg (2 mL of special dilution), slow IV push, repeat up to 0.4 mg (10 mL) or until patient is responsive to physical stimulation and respiratory rate is equal to or greater than 6 breaths/min. Continue to observe, if no response within 3 minutes of administration of 0.4 mg (10 mL) total, repeat dose (0.4 mg as administered previously). Concentration 0.04 mg/mL, PACU only ondansetron (ZOFRAN) injection 4 mg 4 mg, IntraVENous, ONCE PRN, 1 dose, Starting on Fri09/22/23 at 1449, Until Fri09/23/23 at 1449, Nausea, Initial antiemetic therapy., PACU only oxyCODONE (ROXICODONE) immediate release tablet 5 mg 5 mg, Oral, ONCE PRN, 1 dose, Starting on Fri09/22/23 at 1449, Until Fri09/23/23 at 1449, Pain Moderate (4-6), Pain Severe (7-10), PHASE II, PACU only sodium chloride flush 0.9 % injection 5-40 mL 5-40 mL, IntraVENous, PRN, Starting on Fri09/22/23 at 1449, Until Discontinued, Line Care, After every IV line use, For Line Patency: Peripheral IV = 5 mL; Midline or Central Line = 10 mL/lumen. If following IV push medication, administer flush at same rate as the IV push. Flush volume is determined by type of infusion therapy being given. For non-viscous solutions use: Peripheral IV = 5 mL Midline or Central Line = 10 mL/lumen For viscous solutions (i.e. blood components, parenteral nutrition, contrast media, or after obtaining blood sample) use: Peripheral IV = 10 mL Midline or Central Line = 20 mL/lumen, PACU only Linked Groups Order Group 1: labetalol (NORMODYNE;TRANDATE) injection 10 mgJump to med 10 mg, IntraVENous, EVERY 15 MIN PRN, 2 doses, Starting on Fri09/22/23 at 1449, Until Discontinued, High Blood Pressure, for SBP greater than 180 mmHg for 2 consecutive measurements taken from different sites.
If heart rate is 60 bpm or less hold labetalol and use hydralazine if ordered, otherwise contact provider. Inform provider if SBP is still greater than 180 mmHg, 10 minutes after second antihypertensive dose is administered.
PACU only Or hydrALAZINE (APRESOLINE) injection 10 mgJump to med 10 mg, IntraVENous, EVERY 15 MIN PRN, 2 doses, Starting on 4/22/24 at 1449, Until Discontinued, High Blood Pressure, for SBP greater than 180 mmHg for 2 consecutive measurements taken from different sites
If heart rate is greater than 60 bpm, hold hydralazine and use labetalol if ordered, otherwise contact provider. Inform provider if SBP is still greater than 180 mmHg 10 minutes after second antihypertensive dose is administered.
PACU only INFORMATION SOURCE (unrecogn ized section and content) DATE CREATED AUTHOR 10/06/2023 [facility] DATE CREATED AUTHOR AUTHOR'S ORGANIZ ATION 10/06/2023 [facility] DATE CREATED AUTHOR AUTHOR'S ORGANIZ ATION 08/18/[address] [facility] DATE CREATED AUTHOR AUTHOR'S ORGANIZ ATION 01/21/2025 [facility] Care Teams (unrecognized sec tion and content) Team Status: Active Member Role Status Dates No Primary Care Physician Primary Care Provider Active Team Status: Inactive Member Role Status Dates No Primary Care Physician Primary Care Provider Active Start: November 24, 2024 End: November 25, 2024 Dr. Harshal Healy , DO Emergency Provider Active Start: November 24, 2024 End: November 25, 2024 Goals (unrecognized section and content) Goals may be documented in a n alternate section FOR RECORDS PERTAINING TO PATIENTS WHO ARE OR HAVE BEEN ENROLLED IN A CHEMICAL DEPENDENCY/SUBSTANCEABUSE PROGRAM, SOME INFORMATION MAY BE OMITTED. This clinical summary was aggregated from multiple sources. Caution should be exercised in using it in the provision of clinical care. This summary normalizes information from multiple sources, and as a consequence, information in this document may materially change the coding, format and clinical context of patient data. In addition, data may be omitted in some cases. CLINICAL DECISIONS SHOULD BE BASED ON THE PRIMARY CLINICAL RECORDS. [employer] provides no warranty or guarantee of the accuracy or completeness of information in this document.
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
[2025-02-06 17:26] LABS: Internal QC Validated? YES +Cl - CLEAR BKGD; Pregnancy, Serum, hCG Quali. NEGATIVE Negative; Record Kit Lot#, Serum Preg. 947241
[2025-02-06 17:44] VITALS: BP 121/98; PULSE 77; RESP 18; O2SAT 100
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
--- NOTE | 2025-02-06 18:37 | CM.ED ---
Social Work: fat purification worker made phone contact with [facility] and spoke with Quin. fat purification worker made a referral. Yuliana Verdugo, ROAD MACHINE RUNNER, FITNESS INSTRUCTOR
[2025-02-06] MEDS: Tetracaine 0.5% Ophthalmic Bottle 1 DRP RIGHT EYE (18:48)
[2025-02-06 19:15] VITALS: BP 123/82; PULSE 62; RESP 18; TEMP 36.8; O2SAT 99
--- NOTE | 2025-02-26 20:33 | CM.ED ---
Social Work hospital social worker received a written correspondence from [facility] indicating that the referral that was made by this socially responsible investment adviser was accepted for assessment/investigation. Yuliana Verdugo, BOX ICER, CHIPPER FEEDER
== END 2025-02-06 19:53 | disposition home or self-care (01) ==
PROVIDERS: Emergency Provider Student in an Organized Health Care Education/Training Program; Visit Provider Student in an Organized Health Care Education/Training Program
DX: S05.01XA Injury of conjunctiva and corneal abrasion without foreign body, right eye, initial encounter (principal); S00.211A Abrasion of right eyelid and periocular area, initial encounter; S10.91XA Abrasion of unspecified part of neck, initial encounter; H11.31 Conjunctival hemorrhage, right eye; Y04.0XXA Assault by unarmed brawl or fight, initial encounter; Y04.8XXA Assault by other bodily force, initial encounter; Z97.3 Presence of spectacles and contact lenses
CPT/HCPCS: 70450; 70486; 70496; 70498; 71260; 72125; 84703; 90715; 96374; 99285; Q9967; A4216